=== PATIENT | female | born 1990 | race Caucasian/White ===

== ENCOUNTER 2016-10-27 17:32 | Inpatient (IN) | payer BC ==
[~2016-10-27] VITALS: Ht 160 cm; Wt 70.2 kg
[~2016-10-27 17:32] MED LIST: ACET50TA PO; AMBI5TAB OR; ATIV1TAB10 PO; BUSP1TAB PO; COLA100C2 OR; FIOR1CAP PO; FLOM5CAP PO; IBUP600T OR; IBUP80TA PO; MILKSUS OR; PERC5TAB PO; PERC5TAB6 PO; PRENTAB8 PO; TYLE500T53 OR; [UNRECOGNIZED DRUG - CODE] PO
[2016-10-27] MEDS ORDERED: diphenhydrAMINE INJ 50MG/ML VIAL (J1200) As Ordered ONE (19:19)
[2016-10-27] MEDS ORDERED: METOCLOPRAMIDE INJ 10MG/2ML VIAL (J2765) As Ordered ONE (19:19)
[2016-10-27] MEDS ORDERED: PERC5TAB6 PO (19:46)
[2016-10-27] MEDS ORDERED: NAPR500T2 PO (19:46)
[2016-10-27] MEDS ORDERED: NS 1,000 ML IV SCH (20:09)
[2016-10-27] MEDS ORDERED: ACETAMINOPHEN TAB 650MG DOSE (2X325MG) PO PRN (20:15)
[2016-10-27] MEDS ORDERED: BISACODYL 5 MG TAB PO PRN (20:15)
[2016-10-27 21:34] LABS: BASO # 0.1 K/mm3 (0.0-0.2); BASO % 1.5 % (0.0-1.0); EOS # 0.1 K/mm3 (0.0-0.50); EOS % 1.1 % (0.0-3.0); LARGE UNSTAINED CELL # 0.2 K/mm3 (0.0-0.4); LARGE UNSTAINED CELL % 1.8 % (0.0-4.0); LYMPH # 1.9 K/mm3 (1.5-6.5); LYMPH % 19.9 % (24.0-44.0); MEAN CORPUSCULAR HEMOGLOBIN 28.4 pg (27.0-33.0); MEAN CORPUSCULAR HGB CONC 34.3 g/dl (32.0-36.5); MEAN CORPUSCULAR VOLUME 82.7 fl (80.0-96.0); MONO # 0.7 K/mm3 (0.0-0.8); MONO % 7.7 % (0.0-5.0); NEUTROPHILS # 6.1 K/mm3 (1.8-7.7); PLATELET COUNT, AUTOMATED 279 k/mm3 (150-450); RED CELL DISTRIBUTION WIDTH 12.9 % (11.5-14.5)
[2016-10-27 21:41] LABS: ALBUMIN 3.8 GM/DL (3.2-5.2); ALBUMIN/GLOBULIN RATIO 1.23 (1.00-1.93); ALKALINE PHOSPHATASE 67 U/L (45-117); ALT/SGPT 15 U/L (12-78); ANION GAP 9 MEQ/L (8-16); AST/SGOT 9 U/L (15-37); BILIRUBIN,TOTAL 0.2 MG/DL (0.2-1.0); BLOOD UREA NITROGEN 12 MG/DL (7-18); CALCIUM LEVEL 8.4 MG/DL (8.5-10.1); CARBON DIOXIDE LEVEL 25 MEQ/L (21-32); CHLORIDE LEVEL 109 MEQ/L (98-107); CHOLESTEROL LEVEL 153 MG/DL (<200); GLOMERULAR FILTRATION RATE > 60.0 (>60); GLUCOSE, FASTING 98 MG/DL (70-105); MAGNESIUM LEVEL 1.9 MG/DL (1.8-2.4); POTASSIUM SERUM 3.9 MEQ/L (3.5-5.1); SODIUM LEVEL 143 MEQ/L (136-145); TOTAL PROTEIN 6.9 GM/DL (6.4-8.2); TRIGLYCERIDES LEVEL 212 MG/DL (<150)
[2016-10-27 22:17] LABS: CA 125 12.1 U/ML (<30.2)
[2016-10-27] MEDS: LR 1,000 ML IV SCH (23:00)
[2016-10-28] MEDS ORDERED: ONDANSETRON 4MG/2ML VIAL (J2405) As Ordered ONE (00:15)
--- NOTE | 2016-10-28 00:46 | EDDOCDS ---
Nurse's Notes [facility] Name: Gracia Holloway Age: 26 yrs Sex: Female : 1990 Arrival Date: 10/27/2016 Time: 17:32 Bed I4 / M4 Private MD: Garrett Huber Diagnosis: Acute pancreatitis Presentation: 10/27 17:55 Presenting complaint: Patient states: "I was seen by my primary today for a follow up mb9 from being seen here on Sunday after being diagnosed with pancreatitis. My primary called me and said he talked to the hospitalist to have me admitted because he doesn't think the pain is going to be controlled and he told me to come to the ER.". Acute neurological deficits are not present. Mechanism of Injury: No Mechanism of Injury. Adult Sepsis Screening: The patient does not have new or worsening altered mentation. Patient's respiratory rate is less than 22. Systolic blood pressure is greater than 100. Patient has a qSOFA score of 0- Negative Sepsis Screen. Suicide/Homicide risk assessment- the patient denies having any suicidal and/or homicidal ideations and does not present with any other emotional, behavioral or mental health complaints. 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 Transition of care: patient was not received from another setting of care. 17:55 Acuity: ABDON Level 3 mb9 17:55 Method Of Arrival: Walkin/Carried/Asstd mb9 Triage Assessment: 18:01 General: Appears uncomfortable, Behavior is appropriate for age, cooperative. Pain: mb9 Location: posterior aspect of right lateral abdomen and anterior aspect of right lateral abdomen Pain currently is 6 out of 10 on a pain scale. HIV screening NA for this visit Offered previously. Respiratory: Airway is patent Respiratory effort is even, unlabored. Musculoskeletal: No deficits noted. 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 Percocet 5-325 mg Oral tab 1 tab every 4 hours (Last dose: 10/27/2016 15:00) 2. naproxen 500 mg Oral TbEC 1 tab 2 times per day (Last dose: 10/27/2016) - PMHx: Kidney stones; Pancreatitis; - PSHx: Tonsillectomy; fallopian tube removed; - Social history: Smoking status: Patient states was never smoker of tobacco. No barriers to communication noted, The patient speaks fluent Turkish. - Family history: Not pertinent. - : The pt / caregiver states he / she is not on anticoagulants. Home medication list is obtained from the patient. - Exposure Risk Screening:: None identified. Screenin:32 Screening information is obtained from the patient. Fall risk: No risks identified. mcp Assistance ADL's: requires no assistance with activities of daily living. Abuse/DV Screen: The patient / caregiver reports he/she is: not in a situation that causes fear, pain or injury. Nutritional screening: No deficits noted. Advance Directives: Currently, there is no health care proxy. There is no active DNR order. There is no Power of Frog Catcher. home support is adequate. Assessment: 19:31 General: Appears ill, Behavior is cooperative. Pain: Location: back and abdomen Pain mcp currently is 7 out of 10 on a pain scale. Neurological: No deficits noted. Respiratory: Airway is patent Respiratory effort is even, unlabored. GI: Abdomen is non- distended Reports nausea, vomiting. Derm: Skin is pink, warm & dry. 20:30 General: Appears in no apparent distress, Behavior is cooperative. Neurological: No mcp deficits noted. Respiratory: Airway is patent Respiratory effort is even, unlabored. Derm: Skin is pink, warm & dry. 21:30 General: Appears in no apparent distress, Behavior is cooperative. Neurological: No mcp deficits noted. GI: Reports nausea. Derm: Skin is pink, warm & dry. 22:30 General: Appears in no apparent distress, Behavior is cooperative. Neurological: No mcp deficits noted. Respiratory: Airway is patent Respiratory effort is even, unlabored. Derm: Skin is pink, warm & dry. 23:30 General: Appears in no apparent distress, Behavior is cooperative. Neurological: No mcp deficits noted. Respiratory: Airway is patent Respiratory effort is even, unlabored. GI: Reports nausea. Derm: Skin is pink, warm & dry. 10/28 00:38 General: Appears ill, Behavior is cooperative. Neurological: No deficits noted. mcp Respiratory: Airway is patent Respiratory effort is even, unlabored. GI: Reports nausea. Derm: Skin is pink, warm & dry. Vital Signs: 10/27 17:35 BP 145 / 93 RA Sitting (auto/reg); Pulse 85 RA; Resp 18 S; Temp 97.2(O); Pulse Ox 98% mt4 on R/A; Weight 70.31 kg (R); Height 5 ft. 3 in. (160.02 cm) (R); Pain 7/10; 22:48 BP 126 / 70; Pulse 108; Resp 16; Temp 99.1; Pulse Ox 99% ; Pain 5/10; slm 10/28 00:25 BP 130 / 74; Pulse 102; Resp 18; Temp 98.7; Pulse Ox 97% ; Pain 6/10; ajs 10/27 17:35 Body Mass Index 27.46 (70.31 kg, 160.02 cm) mt4 Vitals: 10/27 17:35 Log In Time: October 27, 2016 at 17:32. mt4 ED Course: 17:34 Patient visited by Ava Stevenson. mt4 17:34 Patient moved to Waiting mt4 17:35 Garrett Huber is Private Physician. mt4 17:36 Patient moved to Pre RCE mt4 17:58 Triage Initiated mb9 18:51 Patient visited by Nasreen Nicholas PCA. jb5 18:51 Patient moved to Triage 1 mb9 19:03 West Carty PA is PHCP. btw 19:03 Nirmal Goldberg DO is Attending Physician. btw 19:03 Patient visited by [place] Carty PA. btw 19:08 Patient moved to I4 / M4 jb5 19:22 Justus Espinoza MD is Hospitalizing Provider. btw 19:32 The patient / caregiver is instructed regarding the plan of care and ED course. Patient mcp has correct armband on for positive identification. Placed in gown. Bed in low position. Call light in reach. Adult w/ patient. 19:32 Inserted saline lock: 20 gauge in right antecubital area The patient tolerated the mcp procedure well. 19:33 Patient visited by Carol Levine RN. [facility] 20:22 [facility] Payment Agreement was scanned into [employer] and attached to record. ks16 22:48 Patient visited by Christina Rosas LPN. slm 23:34 Patient visited by Carol Levine RN. mcp 23:53 Patient visited by Carol Levine RN. mcp 10/28 00:25 Patient visited by Radha Quesada. ajs 00:39 No procedures done that require assistance. mcp Administered Medications: 10/27 19:29 Drug: Metoclopramide 20 mg [metoclopramide 5 mg/mL injection solution] Route: IV; Rate: mcp 80 mg/hr; Infused Over: 15 mins; Site: right antecubital; 19:55 Follow up: IV Status: Completed infusion; IV Intake: 20ml mcp 19:29 Drug: diphenhydrAMINE 50 mg [diphenhydramine 50 mg/mL injection solution (1 mL)] Route: mcp IVP; Site: right antecubital; 19:56 Drug: NS 0.9% 1000 ml [sodium chloride 0.9 % intravenous solution] Route: IV; Rate: mcp bolus; Site: right antecubital; 10/28 00:18 Drug: Ondansetron 4 mg [ondansetron HCl 2 mg/mL intravenous solution (2 mL)] Route: mcp IVP; Site: right antecubital; Intake: 10/27 19:55 IV: 20.00ml; Total: 20.00ml. mcp Order Results: Lab Order: CBC WITH DIFFERENTIAL; SPEC'M 10/27/16 21:02 Test: WHITE BLOOD COUNT; Value: 9.0; Range: 4.0-10.0; Units: K/mm3; Status: F Test: RED BLOOD COUNT; Value: 5.01; Range: 4.00-5.40; Units: M/mm3; Status: F Test: HEMOGLOBIN; Value: 14.2; Range: 12.0-16.0; Units: g/dl; Status: F Test: HEMATOCRIT; Value: 41.4; Range: 36.0-47.0; Units: %; Status: F Test: MEAN CORPUSCULAR VOLUME; Value: 82.7; Range: 80.0-96.0; Units: fl; Status: F Test: MEAN CORPUSCULAR HEMOGLOBIN; Value: 28.4; Range: 27.0-33.0; Units: pg; Status: F Test: MEAN CORPUSCULAR HGB CONC; Value: 34.3; Range: 32.0-36.5; Units: g/dl; Status: F Test: RED CELL DISTRIBUTION WIDTH; Value: 12.9; Range: 11.5-14.5; Units: %; Status: F Test: PLATELET COUNT, AUTOMATED; Value: 279; Range: 150-450; Units: k/mm3; Status: F Test: NEUTROPHILS %; Value: 68.0; Range: 36.0-66.0; Abnormal: Above high normal; Units: %; Status: F Test: LYMPH %; Value: 19.9; Range: 24.0-44.0; Abnormal: Below low normal; Units: %; Status: F Test: MONO %; Value: 7.7; Range: 0.0-5.0; Abnormal: Above high normal; Units: %; Status: F Test: EOS %; Value: 1.1; Range: 0.0-3.0; Units: %; Status: F Test: BASO %; Value: 1.5; Range: 0.0-1.0; Abnormal: Above high normal; Units: %; Status: F Test: LARGE UNSTAINED CELL %; Value: 1.8; Range: 0.0-4.0; Units: %; Status: F Test: NEUTROPHILS #; Value: 6.1; Range: 1.8-7.7; Units: K/mm3; Status: F Test: LYMPH #; Value: 1.9; Range: 1.5-6.5; Units: K/mm3; Status: F Test: MONO #; Value: 0.7; Range: 0.0-0.8; Units: K/mm3; Status: F Test: EOS #; Value: 0.1; Range: 0.0-0.50; Units: K/mm3; Status: F Test: BASO #; Value: 0.1; Range: 0.0-0.2; Units: K/mm3; Status: F Test: LARGE UNSTAINED CELL #; Value: 0.2; Range: 0.0-0.4; Units: K/mm3; Status: F Lab Order: COMPLETE COMPHRENSIVE METABOLI; SPEC'M 10/27/16 21:02 Test: GLUCOSE, FASTING; Value: 98; Range: 70-105; Units: MG/DL; Status: F Test: BLOOD UREA NITROGEN; Value: 12; Range: 7-18; Units: MG/DL; Status: F Test: CREATININE FOR GFR; Value: 0.60; Range: 0.55-1.02; Units: MG/DL; Status: F Test: GLOMERULAR FILTRATION RATE; Value: > 60.0; Range: >60; Status: F Test: SODIUM LEVEL; Value: 143; Range: 136-145; Units: MEQ/L; Status: F Test: POTASSIUM SERUM; Value: 3.9; Range: 3.5-5.1; Units: MEQ/L; Status: F Test: CHLORIDE LEVEL; Value: 109; Range: 98-107; Abnormal: Above high normal; Units: MEQ/L; Status: F Test: CARBON DIOXIDE LEVEL; Value: 25; Range: 21-32; Units: MEQ/L; Status: F Test: ANION GAP; Value: 9; Range: 8-16; Units: MEQ/L; Status: F Test: CALCIUM LEVEL; Value: 8.4; Range: 8.5-10.1; Abnormal: Below low normal; Units: MG/DL; Status: F Test: AST/SGOT; Value: 9; Range: 15-37; Abnormal: Below low normal; Units: U/L; Status: F Test: ALT/SGPT; Value: 15; Range: 12-78; Units: U/L; Status: F Test: ALKALINE PHOSPHATASE; Value: 67; Range: 45-117; Units: U/L; Status: F Test: BILIRUBIN,TOTAL; Value: 0.2; Range: 0.2-1.0; Units: MG/DL; Status: F Test: TOTAL PROTEIN; Value: 6.9; Range: 6.4-8.2; Units: GM/DL; Status: F Test: ALBUMIN; Value: 3.8; Range: 3.2-5.2; Units: GM/DL; Status: F Test: ALBUMIN/GLOBULIN RATIO; Value: 1.23; Range: 1.00-1.93; Status: F Test Note: ; Units are mL/min/1.73 m2 Chronic Kidney Disease Staging per NKF: Stage I & II GFR >=60 Normal to Mildly Decreased Stage III GFR 30-59 Moderately Decreased Stage IV GFR 15-29 Severely Decreased Stage V GFR <15 Very Little GFR Left ESRD GFR <15 on LADIES ATTENDANT Lab Order: MAGNESIUM LEVEL; SPEC'M 10/27/16 21:02 Test: MAGNESIUM LEVEL; Value: 1.9; Range: 1.8-2.4; Units: MG/DL; Status: F Lab Order: ETHYL ALCOHOL (ETHANOL); [facility] 10/27/16 21:02 Test: ETHYL ALCOHOL (ETHANOL); Value: < 0.003; Range: 0.000-0.010; Units: %; Status: F Lab Order: CARDIAC RISK PROFILE; [facility] 10/27/16 21:02 Test: TRIGLYCERIDES LEVEL; Value: 212; Range: <150; Abnormal: Above high normal; Units: MG/DL; Status: F Test: CHOLESTEROL LEVEL; Value: 153; Range: <200; Units: MG/DL; Status: F Test: HDL CHOLESTEROL; Value: 46; Range: >40; Units: MG/DL; Status: F Test: LDL CHOLESTEROL; Value: 64.6; Range: <100; Units: MG/DL; Status: F Test: NON-HDL-C; Value: 107; Units: MG/DL; Status: F Test: CHOLESTEROL RISK RATIO; Value: 3.326; Range: <5; Status: F Lab Order: CA 125; [facility] 10/27/16 21:02 Test: CA 125; Value: 12.1; Range: <30.2; Units: U/ML; Status: F Test Note: ; THE CA 125 ASSAY IS PERFORMED ON THE [employer] BY CHEMILUMINESCENCE AND SHOULD NOT BE COMPARED INTERCHANGEABLY WITH OTHER METHODS. IT SHOULD NOT BE USED ALONE A SCREENING TEST OR DIAGNOSIS FOR THE PRESENCE OR ABSENCE OF MALIGNANT DISEASE. PREDICTIONS OF DISEASE RECURRENCE SHOULD NOT BE BASED SOLELY ON VALUES OBTAINED FROM SERIAL PATIENT SERUM VALUES. Lab Order: CA19-9 ANTIGEN,CARBOHYDRATE AG; [facility] 10/27/16 21:02 Test: CA19-9 TUMOR MARKER,CARBOHYDRA; Value: 12.2; Range: <35.0; Units: U/ML; Status: F Test Note: ; THE CA 19-9 ASSAY IS PERFORMED ON THE [employer] BY CHEMILUMINESCENCE AND SHOULD NOT BE COMPARED INTERCHANGEABLY WITH OTHER METHODS. IT SHOULD NOT BE USED ALONE A SCREENING TEST OR DIAGNOSIS FOR THE PRESENCE OR ABSENCE OF MALIGNANT DISEASE. PREDICTIONS OF DISEASE RECURRENCE SHOULD NOT BE BASED SOLELY ON VALUES OBTAINED FROM SERIAL PATIENT SERUM VALUES. Outcome: 19:23 Decision to Hospitalize by Provider. bt 10/28 00:39 Discharge Assessment: patient administered narcotics - no. The following High Risk mcp Discharge criteria are identified: None. Admitted to Pediatrics accompanied by tech, family with patient, via wheelchair, with chart. Condition: stable. Ultrasound Study completed. Property :Personal belongings accompany Pt. 00:45 Patient left the ED. mcp Signatures: Carol Levine, RN RN Nasreen Ahmadi, SELINA STAFF OCCUPATIONAL THERAPIST jb5 Ava Stevenson mt4 [place] Carty PA PA btw Slate, Amanda ajs McIntyre, Stephanie, LPN LPN Dipesh Boland RN RN mbGela Kwok, Reg Reg [email or web address] MTDD
--- NOTE | 2016-10-28 00:46 | EDDOCDS ---
Physician Documentation [facility] Name: Gracia Holloway Age: 26 yrs Sex: Female : 1990 Arrival Date: 10/27/2016 Time: 17:32 Bed I4 / M4 Private MD: Garrett Huber Disposition: 10/27/16 19:23 Hospitalization ordered by Justus Espinoza for Inpatient Admission. Preliminary diagnosis is Acute pancreatitis. - Bed requested for M PED. - Status is Inpatient Admission. mcp - Condition is Stable. - Problem is new. - Symptoms are unchanged. Historical: - Allergies: no known allergies; - Home Meds: 1. Percocet 5-325 mg Oral tab 1 tab every 4 hours (Last dose: 10/27/2016 15:00) 2. naproxen 500 mg Oral TbEC 1 tab 2 times per day (Last dose: 10/27/2016) - PMHx: Kidney stones; Pancreatitis; - PSHx: Tonsillectomy; fallopian tube removed; - Social history: Smoking status: Patient states was never smoker of tobacco. No barriers to communication noted, The patient speaks fluent Japanese. - Family history: Not pertinent. - : The pt / caregiver states he / she is not on anticoagulants. Home medication list is obtained from the patient. - Exposure Risk Screening:: None identified. 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 3 in. (160.02 cm) (R); Pain 7/10; 22:48 BP 126 / 70; Pulse 108; Resp 16; Temp 99.1; Pulse Ox 99% ; Pain 5/10; slm 10/28 00:25 BP 130 / 74; Pulse 102; Resp 18; Temp 98.7; Pulse Ox 97% ; Pain 6/10; ajs 10/27 17:35 Body Mass Index 27.46 (70.31 kg, 160.02 cm) mt4 MDM: 10/27 19:09 IV Saline Lock ordered. btw 19:09 NS 0.9% 1000 ml IV at bolus once ordered. btw 19:09 Metoclopramide 20 mg IV at 80 mg/hr once over 15 mins ordered. btw 19:09 diphenhydrAMINE 50 mg IVP once ordered. btw 19:23 BED REQUEST+ADM ordered. EDMS 20:03 Financial registration complete. ks16 20:22 [facility] Payment Agreement was scanned into [employer] and attached to record. ks16 20:23 CBC WITH DIFFERENTIAL Ordered. EDMS 20:23 COMPLETE COMPHRENSIVE METABOLI Ordered. EDMS 20:23 MAGNESIUM LEVEL Ordered. EDMS 20:24 NPO DIET ordered. EDMS 20:37 ETHYL ALCOHOL (ETHANOL) Ordered. EDMS 20:38 CARDIAC RISK PROFILE Ordered. EDMS 20:56 CA 125 Ordered. EDMS 20:56 CA19-9 ANTIGEN,CARBOHYDRATE AG Ordered. EDMS 21:02 Urine Toxicology Ordered. EDMS 22:01 LIPASE Ordered. EDMS 22:02 CBC WITH DIFFERENTIAL Reviewed. ss12 22:02 COMPLETE COMPHRENSIVE METABOLI Reviewed. ss12 22:02 CARDIAC RISK PROFILE Reviewed. ss12 22:02 MAGNESIUM LEVEL Reviewed. ss12 22:02 ETHYL ALCOHOL (ETHANOL) Reviewed. ss12 22:58 Admission / Observation Status ordered. EDMS 10/28 00:19 Ondansetron 4 mg IVP once ordered. mcp Administered Medications: 10/27 19:29 Drug: Metoclopramide 20 mg [metoclopramide 5 mg/mL injection solution] Route: IV; Rate: mcp 80 mg/hr; Infused Over: 15 mins; Site: right antecubital; 19:55 Follow up: IV Status: Completed infusion; IV Intake: 20ml [facility] 19:29 Drug: diphenhydrAMINE 50 mg [diphenhydramine 50 mg/mL injection solution (1 mL)] Route: mcp IVP; Site: right antecubital; 19:56 Drug: NS 0.9% 1000 ml [sodium chloride 0.9 % intravenous solution] Route: IV; Rate: mcp bolus; Site: right antecubital; 10/28 00:18 Drug: Ondansetron 4 mg [ondansetron HCl 2 mg/mL intravenous solution (2 mL)] Route: mcp IVP; Site: right antecubital; Signatures: Dispatcher [employer] EDMS Carol Levine RN RN mcp Quesenberry [facility], Deborah, RN RN daq Wolfenden, West, PA PA btw Cory Stover ss12 Dipesh LambRN RN mb9 Gela Buitrago, Reg Reg ks16 The chart was reviewed and I authenticate all verbal orders and agree with the evaluation and treatment provided.Corrections: (The following items were deleted from the chart) 10/27 20:37 20:29 CARDIAC RISK PROFILE ordered. EDMS EDMS 20:37 20:33 ETHYL ALCOHOL (ETHANOL)+LAB ordered. EDMS EDMS 20:57 20:48 CA19-9 ANTIGEN,CARBOHYDRATE AG ordered. EDMS EDMS 20:57 20:48 CA 125 ordered. EDMS EDMS 22:58 22:58 CARDIAC RISK PROFILE ordered. EDMS EDMS 22:58 22:58 CARDIAC RISK PROFILE ordered. EDMS EDMS 23:11 22:49 Abdomen, limited US ordered. EDMS EDMS Attachments: 20:22 [facility] [place] Agreement [email or web address] MTDD
[2016-10-28 00:50] VITALS: BP 132/81
[2016-10-28] MEDS: PERCOCET 5MG/325MG TAB PO PRN ×3 (01:35→13:09)
[2016-10-28] MEDS: MORPHINE 2 MG/ML 1ML SYRINGE IV PRN ×3 (02:30→10:19)
[2016-10-28 04:00] VITALS: BP 117/69
--- NOTE | 2016-10-28 04:00 | HPE ---
DATE OF ADMISSION: 10/27/2016 PRIMARY CARE PHYSICIAN: Dr. Garrett Huber CHIEF COMPLAINT: Acute pancreatitis. HISTORY OF PRESENT ILLNESS: Ms. Holloway is a 26-year-old female with multiple past medical history who presented due to experiencing severe abdominal pain which is mostly located on the right side. Patient expressed that the pain started on [place] when she woke up because of the pain. Patient states that the pain was 7/10, sharp and mostly located in the back between the scapula with the anterior radiation. Patient expressed that she has been nauseated since the pain started, and had two episodes of vomiting. On Sunday she had one episode of fever (101); however, patient denied chills or night sweats. Patient came to the emergency room (ER) on October 24. At the ER, the patient had a CT of the abdomen and pelvis with contrast which shows bilobe complex cystic structure within the head of the pancreas measuring 2.3 cm x 1.9 cm. Her lab work was negative except mild elevation of the lipase (394). Patient was discharged home and asked to follow with her primary as well as Naproxen 500 mg one tablet twice a day as well as Percocet since she had some left form the time that she had nephrolithiasis. Patient was seen by her primary care yesterday who ordered repeat of the lipase which indicated that the lipase had increased to 1586. Patient expressed that since her symptoms had started, patient has lost her appetite. Also, patient cannot tolerate food therefore, the patient has decreased food intake. Patient denies sick contact. Patient denies history of illicit drug use or alcoholism and denies previous history of pancreatitis. Patient is not on any scheduled medications before. PAST MEDICAL HISTORY: 1. Ectopic . 2. Pseudoseizure. 3. Migraine headache. 4. Nephrolithiasis. PAST SURGICAL HISTORY: Salpingectomy secondary to ectopic . ALLERGIES: No known drug allergies. HOME MEDICATIONS: - Percocet 5/325 one tablet every four hours - Naproxen 500 mg oral tab, one tablet twice a day SOCIAL HISTORY: Patient denies using tobacco products. Patient denies illicit drug use. Patient expressed that she drinks alcohol occasionally. 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 FAMILY HISTORY: Patient's parents both have hypertension and diabetes. Patient's sister is healthy. Patient is and her two children are healthy. REVIEW OF SYSTEMS: GENERAL: Patient expressed that she has been experiencing episodes of fever; however, patient denies chills or night sweats. Patient also denies weight loss or weight gain. HEENT: Patient denies acute vision or hearing changes. Patient also denies problems with chewing food or sinus infection. She also denies hallucinations. NECK: Patient denies decreased range of motion of her neck. HEART: Patient denies chest pain, racing or skipping heartbeat, or palpitations. LUNGS: Patient denies wheezing or shortness of breath. ABDOMEN: Patient expressed severe pain mostly on the right side with radiation to the back bilaterally. Patient denies diarrhea or constipation. No hematochezia or hemoptysis, nausea or vomiting. No hemoptysis. Patient has been nauseated. Patient had two episodes of vomiting. PHYSICAL EXAMINATION: VITAL SIGNS: Blood pressure 145/93, pulse 85, respiratory rate 18, temperature 97.2, pulse oximetry 98, weight is 70.31, height 160.02. HEENT: Normocephalic, atraumatic. Pupils are equal. Oral mucosa is moist. NECK: Soft, supple, without lymphadenopathy or thyromegaly. HEART: Regular rate and rhythm, normal S1, S2. LUNGS: Clear breath sounds bilaterally. Good air movement. ABDOMEN: Soft, tender to palpation, mostly on the mid abdominal quadrants. Positive bowel sounds in all quadrants. EXTREMITIES: No lower extremity edema, +2 pulses in both lower extremities. NEURO: Cranial nerves II-XII was intact. No focal deficiencies. LABORATORY DATA: CBC is pending at this time. Comprehensive metabolic panel is pending at this time. Lipase 1586, amylase 112. IMAGING: CT scan which was done on 10/24/2016, with contrast shows bilobe complex cystic structure within the head of the pancreas measuring 2.3 x 1.9 cm with minimal enhancement. No biliary dilatation. Unremarkable gallbladder. Unremarkable appendix. ASSESSMENT AND PLAN: 1. Bilobed complex cyst on the head of the pancreas. According to the CT, the patient has bilobed complex cystic structure measuring 2.3 cm x 1.9 cm. Patient on Sunday had mild elevation of the lipase; however, patient did not have previous pancreatitis, and the cyst is a new finding for her. At this time, I have made the patient nothing by mouth and started the patient on IV fluids. We will continue pain management with Percocet, morphine, and acetaminophen. The patient might require repeat CT or possible PET scan to evaluate the complex cystic structure within the head of the pancreas, as well as endoscopic ultrasound. Patient might require gastroenterology evaluation if patient's symptoms gets worse. However, at this time, the patient is stable. We will continue monitoring lipase level. 2. History of hypermagnesemia. We will continue to monitor the patient's magnesium level. At this time, the patient's magnesium level is stable. 3. History of ureterovesical stone with mild right hydronephrosis. This is a chronic issue. At this time, the patient is stable. 4. Pseudoseizure. No acute symptoms. The patient is stable. 5. Ectopic . Status post salpingectomy. Stable. 6. History of migraine headaches. No acute symptoms 7. Deep vein thrombosis (DVT) prophylaxis. Patient is on Lovenox. My preceptor for this patient encounter was Dr. Flor Espinoza. The preceptor was physically present in the building during the encounter and was fully available as needed. All aspects of the patient interview, examination, medical decision making process, and medical care plan development were reviewed and approved by the preceptor. The preceptor is aware and concurs with the plan as stated in the body of this note and will attest to such by his/her co-signature. I, Flor Espinoza, have both independently examined this patient as well as reviewed the documentation. I have discussed in detail with the resident the findings and plan of treatment as documented in the residents documentation. I will continue to follow the patient and offer further guidance to the patients care as necessary during this hospital stay. [place]
[2016-10-28 08:00] VITALS: BP 116/74
[2016-10-28] MEDS: ENOXAPARIN 40 MG/0.4 ML SYRINGE (J1650) SC SCH (08:36)
[2016-10-28] MEDS: ONDANSETRON 4MG/2ML VIAL (J2405) IV PRN ×2 (08:44→18:16)
[2016-10-28] MEDS: LR 1,000 ML IV SCH ×2 (10:45→20:53)
--- NOTE | 2016-10-28 11:20 | IPNPDOC ---
Text Note Date of Service The patient was seen on 10/28/16 at 11:10. NOTE Subjective: Patient states she still has epigastric pain. Complains of nausea. No diarrhea. Objective: Vitals: (see below) General: No acute distress, laying comfortably in bed. HEENT: Moist mucous membranes. Neck: No JVD or lymphadenopathy Cardiac: RRR, No murmurs Pulm: Clear to auscultation b/l. No wheezing, rhonchi Abd: Epigastric tenderness. No rebound, guarding or rigidity. ND + BS Ext: No edema or cyanosis Labs (see below) Images: CT Abd/pelvis 10/27/16 Impression: Bilobed complex cystic structure within the head of the pancreas measuring 2.3 x 1.9 cm with minimal peripheral enhancement. No biliary dilatation. Unremarkable gallbladder, unremarkable appendix. Recommend short interval follow-up CT and/or gastroenterology evaluation with consideration of endoscopic ultrasound or PET scan to evaluate complex cystic structure within the head of pancreas. Moderate generalized retained colonic stool Assessment/Plan 1. Pancreatitis with a complex appearing cystic structure. Triglyceride level 212, lipase 652. No significant alcohol intake. RUQ u/s pending. Unfortunately we do not have gastroenterology at this time. I spoke with the patient on the plan for conservative management with NPO, IV fluids, pain control, and outpt gastroenterology follow-up. If we are unable to control the patient's pain and symptoms, we may need to transfer the patient for a formal gastroenterology evaluation as she does have a family history of pancreatic cancer in the grandmother. Will need repeat CT abd/pelvis, and possible endoscopic u/s. 2. History of ectopic 3. History of pseudoseizures 4. History of migraines 5. History of nephrolithiasis DVT prophy: Enoxaparin VS,Fishbone, I+O VS, Fishbone, I+O Laboratory Tests 10/27/16 21:02 Calcium Level 8.4 L, Aspartate Amino Transf (AST/SGOT) 9 L, Alanine Aminotransferase (ALT/SGPT) 15, Alkaline Phosphatase 67, Total Bilirubin 0.2, Triglycerides Level 212 H, Cholesterol Level 153, HDL Cholesterol 46, LDL Cholesterol 64.6, Total Protein 6.9, Albumin 3.8, Red Blood Count 5.01, Mean Corpuscular Volume 82.7, Mean Corpuscular Hemoglobin 28.4, Mean Corpuscular Hemoglobin Concent 34.3, Red Cell Distribution Width 12.9, Neutrophils (%) (Auto ) 68.0 H, Lymphocytes (%) (Auto) 19.9 L, Monocytes (%) (Auto) 7.7 H, Eosinophils (%) (Auto) 1.1, Basophils (%) (Auto) 1.5 H, Neutrophils # (Auto) 6.1 , Lymphocytes # (Auto) 1.9, Monocytes # (Auto) 0.7, Eosinophils # (Auto) 0.1, Basophils # (Auto) 0.1 Vital Signs Date Time Temp Pulse Resp B/P Pulse Ox O2 Delivery O2 Flow Rate FiO2 10/28/16 10:31 16 10/28/16 08:00 99.6 109 116/74 97 Room Air I&O- Last 24 Hours up to 6 AM 10/28/16 06:00 Intake Total 0 ml Output Total 200 ml Balance -200 ml ANDREW SILVA MD Oct 28, 2016 11:20
--- NOTE | 2016-10-28 12:14 | REP ---
Clinical: Right upper quadrant pain and tenderness. Comparison: CT dated 10/24/2016. Findings: A multilobulated cystic lesion at the head of the pancreas measures 2.6 cm maximal diameter. Liver is normal in contour, size, echogenicity without focal hepatic lesion identified. The gallbladder is unremarkable and without gallstones, wall thickening, or pericholecystic fluid. No biliary ductal dilatation is appreciated and the common bile duct measures 3 mm diameter. Right kidney is normal in reniform shape without hydronephrosis and measures 12.5 x 5.2 x 4.5 cm. No ascites. Impression: 1. Lobulated cystic lesion at the head of the pancreas measuring up to 2.6 cm maximal diameter. This represents a relatively new finding when compared to CT dated 2007. Differential diagnosis includes both benign and malignant cystic neoplasms. Consider pre and post contrast MRI evaluation as well as biopsy/aspiration. 2. Normal gallbladder and biliary system. Signed by Jaime Melendez MD 10/28/2016 12:04 P
[2016-10-28] MEDS: MORPHINE 4 MG/ML 1ML SYRINGE IV PRN ×4 (15:14→23:55)
[2016-10-28 16:00] VITALS: BP 133/93
[2016-10-28 16:20] LABS: VENOUS BASE EXCESS -1.6 (-2.0-2.0); VENOUS O2 SATURATION 67.1 % (60.0-80.0); VENOUS PARTIAL PRESSURE CO2 45.3 mmHg (38.0-50.0); VENOUS PARTIAL PRESSURE O2 34.2 mmHg (30.0-50.0); VENOUS STANDARD HCO3 22.5 MEQ/L; VENOUS TOTAL CO2 25.7 MEQ/L (24.0-28.0)
[2016-10-28 16:25] LABS: BASO # 0.1 K/mm3 (0.0-0.2); BASO % 1.2 % (0.0-1.0); EOS # 0.1 K/mm3 (0.0-0.50); EOS % 1.5 % (0.0-3.0); LARGE UNSTAINED CELL # 0.2 K/mm3 (0.0-0.4); LARGE UNSTAINED CELL % 2.5 % (0.0-4.0); LYMPH # 2.5 K/mm3 (1.5-6.5); MEAN CORPUSCULAR HEMOGLOBIN 28.3 pg (27.0-33.0); MEAN CORPUSCULAR HGB CONC 33.8 g/dl (32.0-36.5); MEAN CORPUSCULAR VOLUME 83.5 fl (80.0-96.0); MONO # 0.5 K/mm3 (0.0-0.8); MONO % 8.1 % (0.0-5.0); NEUTROPHILS # 3.1 K/mm3 (1.8-7.7); NEUTROPHILS % 49.7 % (36.0-66.0); PLATELET COUNT, AUTOMATED 255 k/mm3 (150-450); RED CELL DISTRIBUTION WIDTH 12.9 % (11.5-14.5); WHITE BLOOD COUNT 6.2 K/mm3 (4.0-10.0)
[2016-10-28 16:54] LABS: ALBUMIN 3.5 GM/DL (3.2-5.2); ALBUMIN/GLOBULIN RATIO 1.25 (1.00-1.93); ALKALINE PHOSPHATASE 59 U/L (45-117); ALT/SGPT 18 U/L (12-78); AMYLASE 60 U/L (25-115); ANION GAP 8 MEQ/L (8-16); AST/SGOT 11 U/L (15-37); BILIRUBIN,TOTAL 0.4 MG/DL (0.2-1.0); BLOOD UREA NITROGEN 10 MG/DL (7-18); CALCIUM LEVEL 8.1 MG/DL (8.5-10.1); CARBON DIOXIDE LEVEL 26 MEQ/L (21-32); CHLORIDE LEVEL 108 MEQ/L (98-107); GLOMERULAR FILTRATION RATE > 60.0 (>60); GLUCOSE, FASTING 78 MG/DL (70-105); POTASSIUM SERUM 4.1 MEQ/L (3.5-5.1); SODIUM LEVEL 142 MEQ/L (136-145); TOTAL PROTEIN 6.3 GM/DL (6.4-8.2)
[2016-10-28 20:00] VITALS: BP 149/89
[2016-10-29] MEDS: LR 1,000 ML IV SCH ×2 (04:25→16:03)
[2016-10-29] MEDS: MORPHINE 4 MG/ML 1ML SYRINGE IV PRN ×2 (04:27→09:44)
[2016-10-29 07:07] LABS: BASO % 0.7 % (0.0-1.0); EOS # 0.1 K/mm3 (0.0-0.50); EOS % 1.6 % (0.0-3.0); LARGE UNSTAINED CELL # 0.1 K/mm3 (0.0-0.4); LARGE UNSTAINED CELL % 1.9 % (0.0-4.0); LYMPH # 2.1 K/mm3 (1.5-6.5); LYMPH % 30.2 % (24.0-44.0); MEAN CORPUSCULAR HEMOGLOBIN 28.9 pg (27.0-33.0); MEAN CORPUSCULAR HGB CONC 34.3 g/dl (32.0-36.5); MEAN CORPUSCULAR VOLUME 84.3 fl (80.0-96.0); MONO # 0.4 K/mm3 (0.0-0.8); NEUTROPHILS # 4.1 K/mm3 (1.8-7.7); NEUTROPHILS % 59.6 % (36.0-66.0); PLATELET COUNT, AUTOMATED 246 k/mm3 (150-450); RED CELL DISTRIBUTION WIDTH 11.9 % (11.5-14.5); WHITE BLOOD COUNT 6.9 K/mm3 (4.0-10.0)
[2016-10-29 07:35] LABS: ALBUMIN 3.5 GM/DL (3.2-5.2); ALBUMIN/GLOBULIN RATIO 1.21 (1.00-1.93); ALKALINE PHOSPHATASE 62 U/L (45-117); ALT/SGPT 15 U/L (12-78); ANION GAP 9 MEQ/L (8-16); AST/SGOT 11 U/L (15-37); BILIRUBIN,TOTAL 0.7 MG/DL (0.2-1.0); BLOOD UREA NITROGEN 11 MG/DL (7-18); CALCIUM LEVEL 8.4 MG/DL (8.5-10.1); CARBON DIOXIDE LEVEL 26 MEQ/L (21-32); CHLORIDE LEVEL 105 MEQ/L (98-107); CREATININE FOR GFR 0.53 MG/DL (0.55-1.02); GLOMERULAR FILTRATION RATE > 60.0 (>60); GLUCOSE, FASTING 69 MG/DL (70-105); MAGNESIUM LEVEL 1.6 MG/DL (1.8-2.4); POTASSIUM SERUM 4.3 MEQ/L (3.5-5.1); SODIUM LEVEL 140 MEQ/L (136-145); TOTAL PROTEIN 6.4 GM/DL (6.4-8.2)
[2016-10-29 08:00] VITALS: BP 134/87
[2016-10-29] MEDS: ENOXAPARIN 40 MG/0.4 ML SYRINGE (J1650) SC SCH (08:00)
[2016-10-29] MEDS ORDERED: MAG SULF 1GM/100ML (MAG RUN) 1 GM in APPROPRIATE DILUENT 1 EA IV ONE (09:00)
[2016-10-29 12:00] VITALS: BP 138/84
--- NOTE | 2016-10-29 14:37 | IPNPDOC ---
Text Note Date of Service The patient was seen on 10/29/16 at 14:36. NOTE Subjective: Patient states abdominal pain and nausea have improved. No diarrhea. Objective: Vitals: (see below) General: No acute distress, laying comfortably in bed. HEENT: Moist mucous membranes. Neck: No JVD or lymphadenopathy Cardiac: RRR, No murmurs Pulm: Clear to auscultation b/l. No wheezing, rhonchi Abd: Epigastric tenderness. No rebound, guarding or rigidity. ND + BS Ext: No edema or cyanosis Labs (see below) Images: CT Abd/pelvis 10/27/16 Impression: Bilobed complex cystic structure within the head of the pancreas measuring 2.3 x 1.9 cm with minimal peripheral enhancement. No biliary dilatation. Unremarkable gallbladder, unremarkable appendix. Recommend short interval follow-up CT and/or gastroenterology evaluation with consideration of endoscopic ultrasound or PET scan to evaluate complex cystic structure within the head of pancreas. Moderate generalized retained colonic stool Assessment/Plan 1. Pancreatitis with a complex appearing cystic structure. Triglyceride level 212, lipase 652--> trending down.. No significant alcohol intake. RUQ u/s negative for gallstones. Unfortunately we do not have gastroenterology at this time. I spoke with the patient on the plan for conservative management with NPO , IV fluids, pain control, and outpt gastroenterology follow-up. Family history of pancreatic cancer in the grandmother. MRI Abd pending. Will need outpt repeat CT abd/pelvis, and possible endoscopic u/s. 2. History of ectopic 3. History of pseudoseizures 4. History of migraines 5. History of nephrolithiasis DVT prophy: Enoxaparin VS,Fishbone, I+O VS, Fishbone, I+O Laboratory Tests 10/28/16 16:12 Calcium Level 8.1 L, Aspartate Amino Transf (AST/SGOT) 11 L, Alanine Aminotransferase (ALT/SGPT) 18, Alkaline Phosphatase 59, Total Bilirubin 0.4 #, Total Protein 6.3 L, Albumin 3.5, Red Blood Count 4.46, Mean Corpuscular Volume 83.5, Mean Corpuscular Hemoglobin 28.3, Mean Corpuscular Hemoglobin Concent 33.8 , Red Cell Distribution Width 12.9, Neutrophils (%) (Auto) 49.7, Lymphocytes (% ) (Auto) 37.0, Monocytes (%) (Auto) 8.1 H, Eosinophils (%) (Auto) 1.5, Basophils (%) (Auto) 1.2 H, Neutrophils # (Auto) 3.1, Lymphocytes # (Auto) 2.5, Monocytes # (Auto) 0.5, Eosinophils # (Auto) 0.1, Basophils # (Auto) 0.1 10/29/16 06:37 Calcium Level 8.4 L, Aspartate Amino Transf (AST/SGOT) 11 L, Alanine Aminotransferase (ALT/SGPT) 15, Alkaline Phosphatase 62, Total Bilirubin 0.7 #, Total Protein 6.4, Albumin 3.5, Red Blood Count 4.36, Mean Corpuscular Volume 84.3, Mean Corpuscular Hemoglobin 28.9, Mean Corpuscular Hemoglobin Concent 34.3 , Red Cell Distribution Width 11.9, Neutrophils (%) (Auto) 59.6, Lymphocytes (% ) (Auto) 30.2, Monocytes (%) (Auto) 6.0 H, Eosinophils (%) (Auto) 1.6, Basophils (%) (Auto) 0.7, Neutrophils # (Auto) 4.1, Lymphocytes # (Auto) 2.1, Monocytes # (Auto) 0.4, Eosinophils # (Auto) 0.1, Basophils # (Auto) 0.0 Vital Signs Date Time Temp Pulse Resp B/P Pulse Ox O2 Delivery O2 Flow Rate FiO2 10/29/16 12:00 97.0 97 18 138/84 95 Room Air I&O- Last 24 Hours up to 6 AM 10/29/16 06:00 Intake Total 2981 ml Output Total 1550 ml Balance 1431 ml ANDREW SILVA MD Oct 29, 2016 14:37
[2016-10-29 16:00] VITALS: BP 121/79
[2016-10-29 20:00] VITALS: BP 134/84
[2016-10-30] MEDS: LR 1,000 ML IV SCH ×3 (00:15→19:48)
--- NOTE | 2016-10-30 01:46 | EDDOCDS ---
Nurse's Notes [facility] Name: Gracia Holloway Age: 26 yrs Sex: Female : 1990 Arrival Date: 10/27/2016 Time: 17:32 Bed I4 / M4 Private MD: Garrett Huber Diagnosis: Acute pancreatitis Presentation: 10/27 17:55 Presenting complaint: Patient states: "I was seen by my primary today for a follow up mb9 from being seen here on Sunday after being diagnosed with pancreatitis. My primary called me and said he talked to the hospitalist to have me admitted because he doesn't think the pain is going to be controlled and he told me to come to the ER.". Acute neurological deficits are not present. Mechanism of Injury: No Mechanism of Injury. Adult Sepsis Screening: The patient does not have new or worsening altered mentation. Patient's respiratory rate is less than 22. Systolic blood pressure is greater than 100. Patient has a qSOFA score of 0- Negative Sepsis Screen. Suicide/Homicide risk assessment- the patient denies having any suicidal and/or homicidal ideations and does not present with any other emotional, behavioral or mental health complaints. Status: Patient is not a tire servicer or dependent. Transition of care: patient was not received from another setting of care. 17:55 Acuity: ABDON Level 3 mb9 17:55 Method Of Arrival: Walkin/Carried/Asstd mb9 Triage Assessment: 18:01 General: Appears uncomfortable, Behavior is appropriate for age, cooperative. Pain: mb9 Location: posterior aspect of right lateral abdomen and anterior aspect of right lateral abdomen Pain currently is 6 out of 10 on a pain scale. HIV screening NA for this visit Offered previously. Respiratory: Airway is patent Respiratory effort is even, unlabored. Musculoskeletal: No deficits noted. 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 Percocet 5-325 mg Oral tab 1 tab every 4 hours (Last dose: 10/27/2016 15:00) 2. naproxen 500 mg Oral TbEC 1 tab 2 times per day (Last dose: 10/27/2016) - PMHx: Kidney stones; Pancreatitis; - PSHx: Tonsillectomy; fallopian tube removed; - Social history: Smoking status: Patient states was never smoker of tobacco. No barriers to communication noted, The patient speaks fluent Pashto. - Family history: Not pertinent. - : The pt / caregiver states he / she is not on anticoagulants. Home medication list is obtained from the patient. - Exposure Risk Screening:: None identified. Screenin:32 Screening information is obtained from the patient. Fall risk: No risks identified. mcp Assistance ADL's: requires no assistance with activities of daily living. Abuse/DV Screen: The patient / caregiver reports he/she is: not in a situation that causes fear, pain or injury. Nutritional screening: No deficits noted. Advance Directives: Currently, there is no health care proxy. There is no active DNR order. There is no Power of Pressure Tank Operator. home support is adequate. Assessment: 19:31 General: Appears ill, Behavior is cooperative. Pain: Location: back and abdomen Pain mcp currently is 7 out of 10 on a pain scale. Neurological: No deficits noted. Respiratory: Airway is patent Respiratory effort is even, unlabored. GI: Abdomen is non- distended Reports nausea, vomiting. Derm: Skin is pink, warm & dry. 20:30 General: Appears in no apparent distress, Behavior is cooperative. Neurological: No mcp deficits noted. Respiratory: Airway is patent Respiratory effort is even, unlabored. Derm: Skin is pink, warm & dry. 21:30 General: Appears in no apparent distress, Behavior is cooperative. Neurological: No mcp deficits noted. GI: Reports nausea. Derm: Skin is pink, warm & dry. 22:30 General: Appears in no apparent distress, Behavior is cooperative. Neurological: No mcp deficits noted. Respiratory: Airway is patent Respiratory effort is even, unlabored. Derm: Skin is pink, warm & dry. 23:30 General: Appears in no apparent distress, Behavior is cooperative. Neurological: No mcp deficits noted. Respiratory: Airway is patent Respiratory effort is even, unlabored. GI: Reports nausea. Derm: Skin is pink, warm & dry. 10/28 00:38 General: Appears ill, Behavior is cooperative. Neurological: No deficits noted. mcp Respiratory: Airway is patent Respiratory effort is even, unlabored. GI: Reports nausea. Derm: Skin is pink, warm & dry. Vital Signs: 10/27 17:35 BP 145 / 93 RA Sitting (auto/reg); Pulse 85 RA; Resp 18 S; Temp 97.2(O); Pulse Ox 98% mt4 on R/A; Weight 70.31 kg (R); Height 5 ft. 3 in. (160.02 cm) (R); Pain 7/10; 22:48 BP 126 / 70; Pulse 108; Resp 16; Temp 99.1; Pulse Ox 99% ; Pain 5/10; slm 10/28 00:25 BP 130 / 74; Pulse 102; Resp 18; Temp 98.7; Pulse Ox 97% ; Pain 6/10; ajs 10/27 17:35 Body Mass Index 27.46 (70.31 kg, 160.02 cm) mt4 Vitals: 10/27 17:35 Log In Time: October 27, 2016 at 17:32. mt4 ED Course: 17:34 Patient visited by Ava Stevenson. mt4 17:34 Patient moved to Waiting mt4 17:35 Garrett Huber is Private Physician. mt4 17:36 Patient moved to Pre RCE mt4 17:58 Triage Initiated mb9 18:51 Patient visited by Nasreen Nicholas PCA. jb5 18:51 Patient moved to Triage 1 mb9 19:03 West Carty PA is PHCP. btw 19:03 Nirmal Goldberg DO is Attending Physician. btw 19:03 Patient visited by [place] Carty PA. btw 19:08 Patient moved to I4 / M4 jb5 19:22 Justus Espinoza MD is Hospitalizing Provider. btw 19:32 The patient / caregiver is instructed regarding the plan of care and ED course. Patient mcp has correct armband on for positive identification. Placed in gown. Bed in low position. Call light in reach. Adult w/ patient. 19:32 Inserted saline lock: 20 gauge in right antecubital area The patient tolerated the mcp procedure well. 19:33 Patient visited by Carol Levine RN. [facility] 20:22 [facility] Payment Agreement was scanned into [employer] and attached to record. ks16 22:48 Patient visited by Christina Rosas LPN. slm 23:34 Patient visited by Carol Levine RN. mcp 23:53 Patient visited by Carol Levine RN. mcp 10/28 00:25 Patient visited by Radha Quesada. ajs 00:39 No procedures done that require assistance. [facility] 02:02 T-Sheet-- Draft Copy was scanned into [employer] and attached to record. aileena Administered Medications: 10/27 19:29 Drug: Metoclopramide 20 mg [metoclopramide 5 mg/mL injection solution] Route: IV; Rate: mcp 80 mg/hr; Infused Over: 15 mins; Site: right antecubital; 19:55 Follow up: IV Status: Completed infusion; IV Intake: 20ml mcp 19:29 Drug: diphenhydrAMINE 50 mg [diphenhydramine 50 mg/mL injection solution (1 mL)] Route: mcp IVP; Site: right antecubital; 19:56 Drug: NS 0.9% 1000 ml [sodium chloride 0.9 % intravenous solution] Route: IV; Rate: mcp bolus; Site: right antecubital; 10/28 00:18 Drug: Ondansetron 4 mg [ondansetron HCl 2 mg/mL intravenous solution (2 mL)] Route: mcp IVP; Site: right antecubital; Intake: 10/27 19:55 IV: 20.00ml; Total: 20.00ml. [facility] Order Results: Lab Order: CBC WITH DIFFERENTIAL; SPEC'M 10/27/16 21:02 Test: WHITE BLOOD COUNT; Value: 9.0; Range: 4.0-10.0; Units: K/mm3; Status: F Test: RED BLOOD COUNT; Value: 5.01; Range: 4.00-5.40; Units: M/mm3; Status: F Test: HEMOGLOBIN; Value: 14.2; Range: 12.0-16.0; Units: g/dl; Status: F Test: HEMATOCRIT; Value: 41.4; Range: 36.0-47.0; Units: %; Status: F Test: MEAN CORPUSCULAR VOLUME; Value: 82.7; Range: 80.0-96.0; Units: fl; Status: F Test: MEAN CORPUSCULAR HEMOGLOBIN; Value: 28.4; Range: 27.0-33.0; Units: pg; Status: F Test: MEAN CORPUSCULAR HGB CONC; Value: 34.3; Range: 32.0-36.5; Units: g/dl; Status: F Test: RED CELL DISTRIBUTION WIDTH; Value: 12.9; Range: 11.5-14.5; Units: %; Status: F Test: PLATELET COUNT, AUTOMATED; Value: 279; Range: 150-450; Units: k/mm3; Status: F Test: NEUTROPHILS %; Value: 68.0; Range: 36.0-66.0; Abnormal: Above high normal; Units: %; Status: F Test: LYMPH %; Value: 19.9; Range: 24.0-44.0; Abnormal: Below low normal; Units: %; Status: F Test: MONO %; Value: 7.7; Range: 0.0-5.0; Abnormal: Above high normal; Units: %; Status: F Test: EOS %; Value: 1.1; Range: 0.0-3.0; Units: %; Status: F Test: BASO %; Value: 1.5; Range: 0.0-1.0; Abnormal: Above high normal; Units: %; Status: F Test: LARGE UNSTAINED CELL %; Value: 1.8; Range: 0.0-4.0; Units: %; Status: F Test: NEUTROPHILS #; Value: 6.1; Range: 1.8-7.7; Units: K/mm3; Status: F Test: LYMPH #; Value: 1.9; Range: 1.5-6.5; Units: K/mm3; Status: F Test: MONO #; Value: 0.7; Range: 0.0-0.8; Units: K/mm3; Status: F Test: EOS #; Value: 0.1; Range: 0.0-0.50; Units: K/mm3; Status: F Test: BASO #; Value: 0.1; Range: 0.0-0.2; Units: K/mm3; Status: F Test: LARGE UNSTAINED CELL #; Value: 0.2; Range: 0.0-0.4; Units: K/mm3; Status: F Lab Order: COMPLETE COMPHRENSIVE METABOLI; SPEC'M 10/27/16 21:02 Test: GLUCOSE, FASTING; Value: 98; Range: 70-105; Units: MG/DL; Status: F Test: BLOOD UREA NITROGEN; Value: 12; Range: 7-18; Units: MG/DL; Status: F Test: CREATININE FOR GFR; Value: 0.60; Range: 0.55-1.02; Units: MG/DL; Status: F Test: GLOMERULAR FILTRATION RATE; Value: > 60.0; Range: >60; Status: F Test: SODIUM LEVEL; Value: 143; Range: 136-145; Units: MEQ/L; Status: F Test: POTASSIUM SERUM; Value: 3.9; Range: 3.5-5.1; Units: MEQ/L; Status: F Test: CHLORIDE LEVEL; Value: 109; Range: 98-107; Abnormal: Above high normal; Units: MEQ/L; Status: F Test: CARBON DIOXIDE LEVEL; Value: 25; Range: 21-32; Units: MEQ/L; Status: F Test: ANION GAP; Value: 9; Range: 8-16; Units: MEQ/L; Status: F Test: CALCIUM LEVEL; Value: 8.4; Range: 8.5-10.1; Abnormal: Below low normal; Units: MG/DL; Status: F Test: AST/SGOT; Value: 9; Range: 15-37; Abnormal: Below low normal; Units: U/L; Status: F Test: ALT/SGPT; Value: 15; Range: 12-78; Units: U/L; Status: F Test: ALKALINE PHOSPHATASE; Value: 67; Range: 45-117; Units: U/L; Status: F Test: BILIRUBIN,TOTAL; Value: 0.2; Range: 0.2-1.0; Units: MG/DL; Status: F Test: TOTAL PROTEIN; Value: 6.9; Range: 6.4-8.2; Units: GM/DL; Status: F Test: ALBUMIN; Value: 3.8; Range: 3.2-5.2; Units: GM/DL; Status: F Test: ALBUMIN/GLOBULIN RATIO; Value: 1.23; Range: 1.00-1.93; Status: F Test Note: ; Units are mL/min/1.73 m2 Chronic Kidney Disease Staging per NKF: Stage I & II GFR >=60 Normal to Mildly Decreased Stage III GFR 30-59 Moderately Decreased Stage IV GFR 15-29 Severely Decreased Stage V GFR <15 Very Little GFR Left ESRD GFR <15 on DIGITAL LIBRARIAN Lab Order: MAGNESIUM LEVEL; SPEC'M 10/27/16 21:02 Test: MAGNESIUM LEVEL; Value: 1.9; Range: 1.8-2.4; Units: MG/DL; Status: F Lab Order: ETHYL ALCOHOL (ETHANOL); [facility] 10/27/16 21:02 Test: ETHYL ALCOHOL (ETHANOL); Value: < 0.003; Range: 0.000-0.010; Units: %; Status: F Lab Order: CARDIAC RISK PROFILE; [facility] 10/27/16 21:02 Test: TRIGLYCERIDES LEVEL; Value: 212; Range: <150; Abnormal: Above high normal; Units: MG/DL; Status: F Test: CHOLESTEROL LEVEL; Value: 153; Range: <200; Units: MG/DL; Status: F Test: HDL CHOLESTEROL; Value: 46; Range: >40; Units: MG/DL; Status: F Test: LDL CHOLESTEROL; Value: 64.6; Range: <100; Units: MG/DL; Status: F Test: NON-HDL-C; Value: 107; Units: MG/DL; Status: F Test: CHOLESTEROL RISK RATIO; Value: 3.326; Range: <5; Status: F Lab Order: CA 125; [facility] 10/27/16 21:02 Test: CA 125; Value: 12.1; Range: <30.2; Units: U/ML; Status: F Test Note: ; THE CA 125 ASSAY IS PERFORMED ON THE [employer] BY CHEMILUMINESCENCE AND SHOULD NOT BE COMPARED INTERCHANGEABLY WITH OTHER METHODS. IT SHOULD NOT BE USED ALONE A SCREENING TEST OR DIAGNOSIS FOR THE PRESENCE OR ABSENCE OF MALIGNANT DISEASE. PREDICTIONS OF DISEASE RECURRENCE SHOULD NOT BE BASED SOLELY ON VALUES OBTAINED FROM SERIAL PATIENT SERUM VALUES. Lab Order: [id number] ANTIGEN,CARBOHYDRATE AG; [facility] 10/27/16 21:02 Test: CA19-9 TUMOR MARKER,CARBOHYDRA; Value: 12.2; Range: <35.0; Units: U/ML; Status: F Test Note: ; THE CA 19-9 ASSAY IS PERFORMED ON THE [employer] BY CHEMILUMINESCENCE AND SHOULD NOT BE COMPARED INTERCHANGEABLY WITH OTHER METHODS. IT SHOULD NOT BE USED ALONE A SCREENING TEST OR DIAGNOSIS FOR THE PRESENCE OR ABSENCE OF MALIGNANT DISEASE. PREDICTIONS OF DISEASE RECURRENCE SHOULD NOT BE BASED SOLELY ON VALUES OBTAINED FROM SERIAL PATIENT SERUM VALUES. Outcome: 19:23 Decision to Hospitalize by Provider. btw 10/28 00:39 Discharge Assessment: patient administered narcotics - no. The following High Risk [facility] Discharge criteria are identified: None. Admitted to Pediatrics accompanied by tech, family with patient, via wheelchair, with chart. Condition: stable. Ultrasound Study completed. Property :Personal belongings accompany Pt. 00:45 Patient left the ED. [facility] Signatures: Carol Levine RN RN Nasreen Ahmadi, [employer] TRAINER jb5 Ava Stevenson mt4 [place] Carty PA PA btRadha Cool Stephanie,INFECTION PREVENTION PRACTITIONER INFECTION PREVENTION PRACTITIONER slDipesh De Los Santos RN RN mb9 Chantel, Gela Bolton, Reg Reg [id number] Chart Complete MTDD
--- NOTE | 2016-10-30 01:46 | EDDOCDS ---
Physician Documentation [facility] Name: Gracia Holloway Age: 26 yrs Sex: Female : 1990 Arrival Date: 10/27/2016 Time: 17:32 Bed I4 / M4 Private MD: Garrett Huber Disposition: 10/27/16 19:23 Hospitalization ordered by Justus Espinoza for Inpatient Admission. Preliminary diagnosis is Acute pancreatitis. - Bed requested for M PED. - Status is Inpatient Admission. mcp - Condition is Stable. - Problem is new. - Symptoms are unchanged. Historical: - Allergies: no known allergies; - Home Meds: 1. Percocet 5-325 mg Oral tab 1 tab every 4 hours (Last dose: 10/27/2016 15:00) 2. naproxen 500 mg Oral TbEC 1 tab 2 times per day (Last dose: 10/27/2016) - PMHx: Kidney stones; Pancreatitis; - PSHx: Tonsillectomy; fallopian tube removed; - Social history: Smoking status: Patient states was never smoker of tobacco. No barriers to communication noted, The patient speaks fluent Moldovan. - Family history: Not pertinent. - : The pt / caregiver states he / she is not on anticoagulants. Home medication list is obtained from the patient. - Exposure Risk Screening:: None identified. 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 3 in. (160.02 cm) (R); Pain 7/10; 22:48 BP 126 / 70; Pulse 108; Resp 16; Temp 99.1; Pulse Ox 99% ; Pain 5/10; slm 10/28 00:25 BP 130 / 74; Pulse 102; Resp 18; Temp 98.7; Pulse Ox 97% ; Pain 6/10; ajs 10/27 17:35 Body Mass Index 27.46 (70.31 kg, 160.02 cm) mt4 MDM: 10/27 19:09 IV Saline Lock ordered. btw 19:09 NS 0.9% 1000 ml IV at bolus once ordered. btw 19:09 Metoclopramide 20 mg IV at 80 mg/hr once over 15 mins ordered. btw 19:09 diphenhydrAMINE 50 mg IVP once ordered. btw 19:23 BED REQUEST+ADM ordered. EDMS 20:03 Financial registration complete. [email or web address] 20:22 [facility] Payment Agreement was scanned into [employer] and attached to record. [email or web address] 20:23 CBC WITH DIFFERENTIAL Ordered. EDMS 20:23 COMPLETE COMPHRENSIVE METABOLI Ordered. EDMS 20:23 MAGNESIUM LEVEL Ordered. EDMS 20:24 NPO DIET ordered. EDMS 20:37 ETHYL ALCOHOL (ETHANOL) Ordered. EDMS 20:38 CARDIAC RISK PROFILE Ordered. EDMS 20:56 CA 125 Ordered. EDMS 20:56 CA19-9 ANTIGEN,CARBOHYDRATE AG Ordered. EDMS 21:02 Urine Toxicology Ordered. EDMS 22:01 LIPASE Ordered. EDMS 22:02 CBC WITH DIFFERENTIAL Reviewed. ss12 22:02 COMPLETE COMPHRENSIVE METABOLI Reviewed. ss12 22:02 CARDIAC RISK PROFILE Reviewed. ss12 22:02 MAGNESIUM LEVEL Reviewed. ss12 22:02 ETHYL ALCOHOL (ETHANOL) Reviewed. ss12 22:58 Admission / Observation Status ordered. EDMS 10/28 00:19 Ondansetron 4 mg IVP once ordered. [facility] 02:02 T-Sheet-- Draft Copy was scanned into [employer] and attached to record. aileena Administered Medications: 10/27 19:29 Drug: Metoclopramide 20 mg [metoclopramide 5 mg/mL injection solution] Route: IV; Rate: mcp 80 mg/hr; Infused Over: 15 mins; Site: right antecubital; 19:55 Follow up: IV Status: Completed infusion; IV Intake: 20ml mcp 19:29 Drug: diphenhydrAMINE 50 mg [diphenhydramine 50 mg/mL injection solution (1 mL)] Route: mcp IVP; Site: right antecubital; 19:56 Drug: NS 0.9% 1000 ml [sodium chloride 0.9 % intravenous solution] Route: IV; Rate: mcp bolus; Site: right antecubital; 10/28 00:18 Drug: Ondansetron 4 mg [ondansetron HCl 2 mg/mL intravenous solution (2 mL)] Route: mcp IVP; Site: right antecubital; Signatures: Dispatcher [employer] EDMS Carol Levine, RN RN susi Arora HC, Yamilet RN [place] Solorzano PA PA btw Cory Stover ss12 Dipesh Lamb RN RN mb9 Arel, Tasneem Boltonberly, Reg Reg [email or web address] The chart was reviewed and I authenticate all verbal orders and agree with the evaluation and treatment provided.Corrections: (The following items were deleted from the chart) 10/27 20:37 20:29 CARDIAC RISK PROFILE ordered. EDMS EDMS 20:37 20:33 ETHYL ALCOHOL (ETHANOL)+LAB ordered. EDMS EDMS 20:57 20:48 CA19-9 ANTIGEN,CARBOHYDRATE AG ordered. EDMS EDMS 20:57 20:48 CA 125 ordered. EDMS EDMS 22:58 22:58 CARDIAC RISK PROFILE ordered. EDMS EDMS 22:58 22:58 CARDIAC RISK PROFILE ordered. EDMS EDMS 23:11 22:49 Abdomen, limited US ordered. EDMS EDMS Attachments: 20:22 [facility] Payment Agreement [email or web address] 10/28 02:02 T-Sheet-- Draft Copy [place] Chart Complete MTDD
--- NOTE | 2016-10-30 01:46 | EDDOCDS ---
Physician Documentation [facility] Name: Gracia Holloway Age: 26 yrs Sex: Female : 1990 Arrival Date: 10/27/2016 Time: 17:32 Bed I4 / M4 Private MD: Garrett Huber Disposition: 10/27/16 19:23 Hospitalization ordered by Justus Espinoza for Inpatient Admission. Preliminary diagnosis is Acute pancreatitis. - Bed requested for M PED. - Status is Inpatient Admission. mcp - Condition is Stable. - Problem is new. - Symptoms are unchanged. Historical: - Allergies: no known allergies; - Home Meds: 1. Percocet 5-325 mg Oral tab 1 tab every 4 hours (Last dose: 10/27/2016 15:00) 2. naproxen 500 mg Oral TbEC 1 tab 2 times per day (Last dose: 10/27/2016) - PMHx: Kidney stones; Pancreatitis; - PSHx: Tonsillectomy; fallopian tube removed; - Social history: Smoking status: Patient states was never smoker of tobacco. No barriers to communication noted, The patient speaks fluent Fijian. - Family history: Not pertinent. - : The pt / caregiver states he / she is not on anticoagulants. Home medication list is obtained from the patient. - Exposure Risk Screening:: None identified. 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 3 in. (160.02 cm) (R); Pain 7/10; 22:48 BP 126 / 70; Pulse 108; Resp 16; Temp 99.1; Pulse Ox 99% ; Pain 5/10; slm 10/28 00:25 BP 130 / 74; Pulse 102; Resp 18; Temp 98.7; Pulse Ox 97% ; Pain 6/10; ajs 10/27 17:35 Body Mass Index 27.46 (70.31 kg, 160.02 cm) mt4 MDM: 10/27 19:09 IV Saline Lock ordered. btw 19:09 NS 0.9% 1000 ml IV at bolus once ordered. btw 19:09 Metoclopramide 20 mg IV at 80 mg/hr once over 15 mins ordered. btw 19:09 diphenhydrAMINE 50 mg IVP once ordered. btw 19:23 BED REQUEST+ADM ordered. EDMS 20:03 Financial registration complete. [email or web address] 20:22 [facility] Payment Agreement was scanned into [employer] and attached to record. [email or web address] 20:23 CBC WITH DIFFERENTIAL Ordered. EDMS 20:23 COMPLETE COMPHRENSIVE METABOLI Ordered. EDMS 20:23 MAGNESIUM LEVEL Ordered. EDMS 20:24 NPO DIET ordered. EDMS 20:37 ETHYL ALCOHOL (ETHANOL) Ordered. EDMS 20:38 CARDIAC RISK PROFILE Ordered. EDMS 20:56 CA 125 Ordered. EDMS 20:56 CA19-9 ANTIGEN,CARBOHYDRATE AG Ordered. EDMS 21:02 Urine Toxicology Ordered. EDMS 22:01 LIPASE Ordered. EDMS 22:02 CBC WITH DIFFERENTIAL Reviewed. ss12 22:02 COMPLETE COMPHRENSIVE METABOLI Reviewed. ss12 22:02 CARDIAC RISK PROFILE Reviewed. ss12 22:02 MAGNESIUM LEVEL Reviewed. ss12 22:02 ETHYL ALCOHOL (ETHANOL) Reviewed. ss12 22:58 Admission / Observation Status ordered. EDMS 10/28 00:19 Ondansetron 4 mg IVP once ordered. [facility] 02:02 T-Sheet-- Draft Copy was scanned into [employer] and attached to record. aileena Administered Medications: 10/27 19:29 Drug: Metoclopramide 20 mg [metoclopramide 5 mg/mL injection solution] Route: IV; Rate: mcp 80 mg/hr; Infused Over: 15 mins; Site: right antecubital; 19:55 Follow up: IV Status: Completed infusion; IV Intake: 20ml mcp 19:29 Drug: diphenhydrAMINE 50 mg [diphenhydramine 50 mg/mL injection solution (1 mL)] Route: mcp IVP; Site: right antecubital; 19:56 Drug: NS 0.9% 1000 ml [sodium chloride 0.9 % intravenous solution] Route: IV; Rate: mcp bolus; Site: right antecubital; 10/28 00:18 Drug: Ondansetron 4 mg [ondansetron HCl 2 mg/mL intravenous solution (2 mL)] Route: mcp IVP; Site: right antecubital; Signatures: Dispatcher [employer] EDMS Carol Levine, RN RN susi Arora HC, Yamilet RN [place] PA PA btw Cory Stover ss12 Dipesh Lamb RN RN mb9 Arel, Tasneem Boltonberly, Reg Reg [email or web address] The chart was reviewed and I authenticate all verbal orders and agree with the evaluation and treatment provided.Corrections: (The following items were deleted from the chart) 10/27 20:37 20:29 CARDIAC RISK PROFILE ordered. EDMS EDMS 20:37 20:33 ETHYL ALCOHOL (ETHANOL)+LAB ordered. EDMS EDMS 20:57 20:48 CA19-9 ANTIGEN,CARBOHYDRATE AG ordered. EDMS EDMS 20:57 20:48 CA 125 ordered. EDMS EDMS 22:58 22:58 CARDIAC RISK PROFILE ordered. EDMS EDMS 22:58 22:58 CARDIAC RISK PROFILE ordered. EDMS EDMS 23:11 22:49 Abdomen, limited US ordered. EDMS EDMS Attachments: 20:22 [facility] [place] Payment Agreement [email or web address] 10/28 02:02 T-Sheet-- Draft Copy [place] Chart Complete MTDD
[2016-10-30 03:59] VITALS: BP 136/79
[2016-10-30 06:53] LABS: BASO # 0.1 K/mm3 (0.0-0.2); BASO % 2.2 % (0.0-1.0); EOS # 0.1 K/mm3 (0.0-0.50); EOS % 2.4 % (0.0-3.0); LARGE UNSTAINED CELL # 0.1 K/mm3 (0.0-0.4); LARGE UNSTAINED CELL % 1.8 % (0.0-4.0); LYMPH % 34.1 % (24.0-44.0); MEAN CORPUSCULAR HEMOGLOBIN 28.4 pg (27.0-33.0); MEAN CORPUSCULAR HGB CONC 34.5 g/dl (32.0-36.5); MEAN CORPUSCULAR VOLUME 82.3 fl (80.0-96.0); MONO # 0.4 K/mm3 (0.0-0.8); MONO % 6.6 % (0.0-5.0); NEUTROPHILS % 52.9 % (36.0-66.0); PLATELET COUNT, AUTOMATED 264 k/mm3 (150-450); RED CELL DISTRIBUTION WIDTH 12.6 % (11.5-14.5); WHITE BLOOD COUNT 5.7 K/mm3 (4.0-10.0)
[2016-10-30 07:19] LABS: ALBUMIN 3.3 GM/DL (3.2-5.2); ALBUMIN/GLOBULIN RATIO 1.22 (1.00-1.93); ALKALINE PHOSPHATASE 60 U/L (45-117); ALT/SGPT 13 U/L (12-78); ANION GAP 6 MEQ/L (8-16); AST/SGOT 9 U/L (15-37); BILIRUBIN,TOTAL 0.4 MG/DL (0.2-1.0); BLOOD UREA NITROGEN 9 MG/DL (7-18); CALCIUM LEVEL 8.3 MG/DL (8.5-10.1); CARBON DIOXIDE LEVEL 27 MEQ/L (21-32); CHLORIDE LEVEL 107 MEQ/L (98-107); CREATININE FOR GFR 0.54 MG/DL (0.55-1.02); GLOMERULAR FILTRATION RATE > 60.0 (>60); GLUCOSE, FASTING 90 MG/DL (70-105); MAGNESIUM LEVEL 1.8 MG/DL (1.8-2.4); POTASSIUM SERUM 4.4 MEQ/L (3.5-5.1); SODIUM LEVEL 140 MEQ/L (136-145)
[2016-10-30 08:32] VITALS: BP 127/76
[2016-10-30] MEDS: ONDANSETRON 4MG/2ML VIAL (J2405) IV PRN (08:38)
[2016-10-30] MEDS: ENOXAPARIN 40 MG/0.4 ML SYRINGE (J1650) SC SCH (08:39)
--- NOTE | 2016-10-30 15:00 | IPNPDOC ---
Text Note Date of Service The patient was seen on 10/30/16 at 14:56. NOTE Subjective: Abdominal pain and nausea have resolved. Tolerating clear liquid diet. Objective: Vitals: (see below) General: No acute distress, laying comfortably in bed. HEENT: Moist mucous membranes. Neck: No JVD or lymphadenopathy Cardiac: RRR, No murmurs Pulm: Clear to auscultation b/l. No wheezing, rhonchi Abd: Epigastric tenderness. No rebound, guarding or rigidity. ND + BS Ext: No edema or cyanosis Labs (see below) Images: CT Abd/pelvis 10/27/16 Impression: Bilobed complex cystic structure within the head of the pancreas measuring 2.3 x 1.9 cm with minimal peripheral enhancement. No biliary dilatation. Unremarkable gallbladder, unremarkable appendix. Recommend short interval follow-up CT and/or gastroenterology evaluation with consideration of endoscopic ultrasound or PET scan to evaluate complex cystic structure within the head of pancreas. Moderate generalized retained colonic stool Assessment/Plan 1. Pancreatitis with a complex appearing cystic structure. Triglyceride level 212, lipase 652--> trending down.. No significant alcohol intake. RUQ u/s negative for gallstones. Unfortunately we do not have gastroenterology at this time. Family history of pancreatic cancer in the grandmother. MRI Abd. preliminary discussed with pt . Will need outpt repeat CT abd/pelvis, and possible endoscopic u/s. F/u outpt GI. Pain has resolved. Tolerating clears, advance to regular diet when tolerates. 2. History of ectopic 3. History of pseudoseizures 4. History of migraines 5. History of nephrolithiasis DVT prophy: Enoxaparin Plan to d/c in the next 24 hours if tolerates regular diet. VS,Fishbone, I+O VS, Fishbone, I+O Laboratory Tests 10/30/16 06:37 Calcium Level 8.3 L, Aspartate Amino Transf (AST/SGOT) 9 L, Alanine Aminotransferase (ALT/SGPT) 13, Alkaline Phosphatase 60, Total Bilirubin 0.4, Total Protein 6.0 L, Albumin 3.3, Red Blood Count 4.33, Mean Corpuscular Volume 82.3, Mean Corpuscular Hemoglobin 28.4, Mean Corpuscular Hemoglobin Concent 34.5 , Red Cell Distribution Width 12.6, Neutrophils (%) (Auto) 52.9, Lymphocytes (% ) (Auto) 34.1, Monocytes (%) (Auto) 6.6 H, Eosinophils (%) (Auto) 2.4, Basophils (%) (Auto) 2.2 H, Neutrophils # (Auto) 3.0, Lymphocytes # (Auto) 2.0, Monocytes # (Auto) 0.4, Eosinophils # (Auto) 0.1, Basophils # (Auto) 0.1 Vital Signs Date Time Temp Pulse Resp B/P Pulse Ox O2 Delivery O2 Flow Rate FiO2 10/30/16 08:32 97.1 94 18 127/76 98 Room Air I&O- Last 24 Hours up to 6 AM 10/30/16 06:00 Intake Total 2660 ml Output Total 2050 ml Balance 610 ml ANDREW SILVA MD Oct 30, 2016 15:00
[2016-10-30 16:00] VITALS: BP 131/85
[2016-10-30 20:00] VITALS: BP 130/76
[2016-10-31] VITALS: BP 135/86
[2016-10-31] MEDS: LR 1,000 ML IV SCH (05:29)
[2016-10-31 06:44] LABS: BASO # 0.1 K/mm3 (0.0-0.2); EOS # 0.2 K/mm3 (0.0-0.50); EOS % 2.6 % (0.0-3.0); LARGE UNSTAINED CELL # 0.2 K/mm3 (0.0-0.4); LARGE UNSTAINED CELL % 2.8 % (0.0-4.0); LYMPH # 2.1 K/mm3 (1.5-6.5); LYMPH % 35.7 % (24.0-44.0); MEAN CORPUSCULAR HGB CONC 33.3 g/dl (32.0-36.5); MEAN CORPUSCULAR VOLUME 84.1 fl (80.0-96.0); MONO # 0.5 K/mm3 (0.0-0.8); MONO % 7.6 % (0.0-5.0); NEUTROPHILS % 50.3 % (36.0-66.0); PLATELET COUNT, AUTOMATED 266 k/mm3 (150-450); RED CELL DISTRIBUTION WIDTH 11.8 % (11.5-14.5); WHITE BLOOD COUNT 5.9 K/mm3 (4.0-10.0)
[2016-10-31 07:02] LABS: ALBUMIN 3.3 GM/DL (3.2-5.2); ALBUMIN/GLOBULIN RATIO 1.18 (1.00-1.93); ALKALINE PHOSPHATASE 53 U/L (45-117); ALT/SGPT 14 U/L (12-78); ANION GAP 8 MEQ/L (8-16); AST/SGOT 13 U/L (15-37); BILIRUBIN,TOTAL 0.2 MG/DL (0.2-1.0); BLOOD UREA NITROGEN 7 MG/DL (7-18); CALCIUM LEVEL 8.5 MG/DL (8.5-10.1); CARBON DIOXIDE LEVEL 26 MEQ/L (21-32); CHLORIDE LEVEL 106 MEQ/L (98-107); CREATININE FOR GFR 0.55 MG/DL (0.55-1.02); GLOMERULAR FILTRATION RATE > 60.0 (>60); GLUCOSE, FASTING 102 MG/DL (70-105); MAGNESIUM LEVEL 1.5 MG/DL (1.8-2.4); POTASSIUM SERUM 3.7 MEQ/L (3.5-5.1); SODIUM LEVEL 140 MEQ/L (136-145); TOTAL PROTEIN 6.1 GM/DL (6.4-8.2)
[2016-10-31 08:00] VITALS: BP 122/72
[2016-10-31] MEDS: ENOXAPARIN 40 MG/0.4 ML SYRINGE (J1650) SC SCH (08:34)
[2016-10-31] MEDS ORDERED: MAGNESIUM OXIDE 400 MG TAB (MAG-OX) PO SCH (09:00)
[2016-10-31 12:00] VITALS: BP 130/78
--- NOTE | 2016-10-31 16:03 | DSES ---
DATE OF ADMISSION: 10/27/2016 DATE OF DISCHARGE: 10/31/2016 ATTENDING PHYSICIAN: Dr. Flor Espinoza DICTATING PHYSICIAN: Dr. Flor Espinoza PRIMARY CARE PHYSICIAN: Unknown. REFERRING PHYSICIAN: Unknown. CONSULTING PHYSICIAN: None. CONDITION ON DISCHARGE: Stable. FINAL DIAGNOSIS: Acute pancreatitis. PROCEDURES: None. HISTORY OF PRESENT ILLNESS: The patient is a 26-year-old female with a past medical history of ectopic , pseudoseizure, migraine headache, nephrolithiasis, who presented to the emergency room with severe abdominal pain, which is mostly located in her right side. The patient stated that the pain started on [place] and she woke up because of the pain. The patient states that the pain is a 7 out of 10, sharp, mostly located in the back between the scapula and anterior radiation. The patient has expressed that she has been nauseated since the pain started. Had two episodes of vomiting. The patient also noted a fever of 101. In the emergency room, the patient had a CT scan of her abdomen and pelvis with contrast that showed a bilobed complex cystic structure within the head of the pancreas measuring 2.3 x 1.9 cm. The patient had a lipase of 394. The patient was discharged home and asked to followup with her primary care provider and given Naproxen. The patient followed up with her primary care provider, who got another lipase level, which was elevated at 1586. The patient expressed that her symptoms started and the patient had lost her appetite and returned back to the emergency room. The patient was admitted for acute pancreatitis. HOSPITALIZATION COURSE: 1. Acute pancreatitis with complex appearing cystic structure, triglyceride level of 212, lipase level has been elevated initially and has been trending down. The patient denies any significant alcohol intake. Right upper quadrant ultrasound has been negative for any gallstones. Unfortunately, we do not have any gastroenterology at this time. The patient's clinical status has shown significant improvement. Her abdominal pain has resolved. She has been tolerating a full regular diet and has been advised to this point. She has been put on aggressive IV fluid hydration. The patient has been advised to followup with her primary care provider and collet driller for repeat imaging of her abdomen. 2. History of ectopic . 3. History of pseudoseizure. 4. History of migraines. 5. History of nephrolithiasis. 6. Deep vein thrombosis (DVT) prophylaxis. She has been on Lovenox. DISCHARGE MEDICATIONS: The patient is being discharged home with her home medications, which include: - Percocet 5/325 one tablet by mouth every four hours as needed for pain Medications that were stopped included Naproxen 500 mg by mouth twice a day as needed for pain. DISCHARGE INSTRUCTIONS: The patient was advised to followup with primary care provider and collet driller in the next 7 days. She has been advised to confirm/schedule appointment. She has been advised to remain compliant with treatment plan and medications and return to the emergency room if she experiences any problems. Time spent on discharge: 35 minutes.
--- NOTE | 2016-11-01 11:38 | REPUSA ---
CLINICAL HISTORY: Right-sided abdominal pain. TECHNIQUE: MRI of the abdomen was performed utilizing multiple sequences in axial, coronal and sagit teresita planes without and with IV contrast material. COMMENTS: The liver demonstrates normal signal intensity on all sequences without evidence of mass or defect. There is no intra or extrahepatic biliary ductal dilatation. The spleen is normal. The gallbladder is present and is unremarkable. Note is made of a 2.3 x 1.5 cm cystic lesion in the region of pancre atic head and uncinate process which appears to be simple without any enhancing components, septation s or nodularity. Differential includes pancreatic pseudocyst, congenial cyst as well as benign cysti c neoplasm such as side branch IPMT (intraductal papillary or mucinous tumor). There is no evidence of adrenal mass. The kidneys are normal in size, shape and configuration. Ther e is no evidence of renal mass. There is no hydroureter or hydronephrosis. There is no wall thickening within the visualized bowel. No evidence for small or large bowel obstru ction. There is no evidence of abnormal ascites or lymphadenopathy. Images of the lung bases reveal no evidence for pleural effusion. IMPRESSION: 2.3 x 1.5 cm cystic lesion in the region of pancreatic head and uncinate process which appears to be simple without any enhancing components, septations or nodularity. Differential includes pancreatic pseudocyst, congenial cyst as well as benign cystic neoplasm such as side branch IPMT (intraductal pa pillary or mucinous tumors). The lesion may be biopsied for confirmation. Alternatively short-term f ollowup study may be obtained in 6 months to document stability. Thank you for your kind referral of this patient. We appreciate the opportunity to participate in th is patient's care.
== END 2016-10-31 12:54 | disposition home or self-care (01) | DRG 282 ==
LOC: M ED 17:32 → M PED 22:53 → M ED INP 22:54 → OBSVTOIN 22:54 → M PED 22:54
PROVIDERS: ADMIT Internal Medicine; ATTEND Internal Medicine
DX: K85.90 Acute pancreatitis without necrosis or infection, unspecified (principal); K86.2 Cyst of pancreas

== ENCOUNTER → 2016-12-14 | Outpatient (CLI) | payer BC ==
[~2016-12-14] MED LIST changes: +NAPR500T2 PO
[2016-12-14 15:31] LABS: CONTROL LINE UCG INT CTR LINE PRESENT
== END ==
LOC: M LRY 08:22
PROVIDERS: ATTEND Nurse Practitioner Family
DX: N91.2 Amenorrhea, unspecified (principal)

== ENCOUNTER → 2016-12-20 | Outpatient (REF) | payer BC | LOC: M LAB REF 12:58 | PROVIDERS: ATTEND Nurse Practitioner Family | DX: N91.2 Amenorrhea, unspecified (principal) ==

== ENCOUNTER → 2017-02-16 | Outpatient (REF) | payer BC | LOC: M LAB REF 15:04 | PROVIDERS: ATTEND Internal Medicine Gastroenterology | DX: K85.00 Idiopathic acute pancreatitis without necrosis or infection (principal); K86.3 Pseudocyst of pancreas ==

== ENCOUNTER → 2017-06-25 | Outpatient (CLI) | payer BC ==
[~2017-06-25] MED LIST changes: +AMOX875T; -NAPR500T2 PO; +NAPR500T3 PO; +PERC5TAB12 PO; -PERC5TAB6 PO; +PRENTAB40 PO
--- NOTE | 2017-06-25 22:13 | REP ---
Clinical: Anatomical evaluation. Comparison: None . Findings: Examination demonstrates a single live intrauterine in transverse (head to the left side) presentation. motion is identified by technologist. Placenta is noted anteriorly and grade zero without evidence for placenta previa or abruption. Amniotic fluid volume is normal. Cervix measures 5.5 cm in length and appears closed. No evidence for nuchal cord. Gestational age by LMP 20 weeks 6 days with KAYLA 11/06/2018 . Gestational age by current measurements 20 weeks 1 day with KAYLA 11/11/2017 . FHR equals 147 beats per minute. BPD 4.7 cm 20 weeks 2 days HC 17.6 cm 20 weeks 1 day AC 15.1 cm 20 weeks 2 days FL 3.4 cm 20 weeks 6 days HL 3.1 cm 20 weeks 2 days HC/AC ratio 1.17 Estimated weight 358 grams ( 50th percentile). Anatomical assessment demonstrates normal structures including cranium, choroid plexus, cavum, cerebellum/posterior fossa, facial features, lungs, diaphragm, stomach, cord insertion/three-vessel cord, kidneys/bladder, spine, and extremities. Impression: Single live intrauterine in transverse lie demonstrating appropriate interval growth. Limited evaluation of the heart and ventricular outflow tracts noted. Remainder of the examination is normal. Signed by Jaime Melendez MD 06/25/2017 10:06 P
== END ==
LOC: MERGE 11:33 → M SMT 11:33
PROVIDERS: ATTEND Specialist
DX: Z34.82 Encounter for supervision of other normal pregnancy, second trimester (principal); Z3A.20 20 weeks gestation of pregnancy

== ENCOUNTER → 2017-07-27 | Outpatient (CLI) | payer BC ==
--- NOTE | 2017-07-27 18:30 | REP ---
OB ULTRASOUND: Real-time sonographic evaluation of the gravid uterus is performed. There is a single living intrauterine gestation with estimated gestational age 24 weeks 6 days, EDC 11/10/2017. BPD 59 mm = 24 weeks 1 day HC 224 mm = 24 weeks 3 days AC 217 mm = 26 weeks 1 day FL 45 mm = 24 weeks 5 days HC/AC ratio 1.03, within normal range. Estimated weight 805 grams, 59th percentile. Cervix is closed and measures 5.1 cm in length. heart rate 137 beats per minute. SEEN/GROSSLY UNREMARKABLE Lateral ventricles yes Posterior fossa yes Upper lip yes Four-chamber heart yes LVOT yes RVOT yes Stomach yes Cord insertion yes Three vessel cord yes Kidneys yes Bladder yes Spine no position: Variable. Placenta: Anterior and grade 1 with no previa or abruption. Amniotic fluid: Within normal limits. Signed by Mark Bull MD 07/30/2017 04:11 P
== END ==
LOC: M RAD 15:57 → MERGE 16:00
PROVIDERS: ATTEND Specialist
DX: Z36 Encounter for antenatal screening of mother (principal)

== ENCOUNTER 2017-08-04 15:30 | Emergency (ER) | payer BC ==
[~2017-08-04 15:30] MED LIST changes: -AMOX875T; -PRENTAB40 PO
[2017-08-04] MEDS ORDERED: AMOX875T (15:41)
[2017-08-04] MEDS ORDERED: PRENTAB40 PO (15:41)
[2017-08-04] MEDS ORDERED: ONDANSETRON 4MG/2ML VIAL (J2405) As Ordered ONE (15:52)
[2017-08-04 16:06] VITALS: O2SAT 99
[2017-08-04] MEDS: ONDANSETRON 4MG/2ML VIAL (J2405) IV ONE (16:09)
[2017-08-04] MEDS: NS 500 ML IV ONE (16:09)
[2017-08-04 16:10] LABS: ABG BASE EXCESS -5.1 (-2.0-2.0); ABG HCO3 17.9 MEQ/L (22.0-26.0); ABG PARTIAL PRESSURE CO2 28.2 mmHg (35.0-45.0); ABG PARTIAL PRESSURE O2 97.1 mmHg (75.0-100.0); ABG STANDARD HCO3 20.3 MEQ/L (22.0-26.0); ABG TOTAL CO2 18.8 MEQ/L (22.0-29.0); ABG pH (ARTERIAL) 7.421 UNITS (7.350-7.450)
[2017-08-04 16:17] LABS: MEAN CORPUSCULAR HEMOGLOBIN 28.9 pg (27.0-33.0); MEAN CORPUSCULAR HGB CONC 33.6 g/dl (32.0-36.5); MEAN CORPUSCULAR VOLUME 85.9 fl (80.0-96.0); PLATELET COUNT, AUTOMATED 286 10^3/uL (150-450); RED CELL DISTRIBUTION WIDTH 13.1 % (11.5-14.5); WHITE BLOOD COUNT 11.9 10^3/uL (4.0-10.0)
[2017-08-04 16:37] LABS: ADD MANUAL DIFFER YES; DIFF SLIDE NUMBER 164
[2017-08-04 16:39] LABS: EOSINOPHILS 2 % (0-5)
[2017-08-04 16:46] LABS: ALBUMIN 2.9 GM/DL (3.2-5.2); ALBUMIN/GLOBULIN RATIO 0.81 (1.00-1.93); ALKALINE PHOSPHATASE 61 U/L (45-117); ALT/SGPT 18 U/L (12-78); ANION GAP 10 MEQ/L (8-16); AST/SGOT 15 U/L (15-37); BILIRUBIN,DIRECT < 0.1 MG/DL (0.0-0.2); BILIRUBIN,TOTAL 0.2 MG/DL (0.2-1.0); BLOOD UREA NITROGEN 9 MG/DL (7-18); CALCIUM LEVEL 8.5 MG/DL (8.5-10.1); CARBON DIOXIDE LEVEL 20 MEQ/L (21-32); CHLORIDE LEVEL 106 MEQ/L (98-107); CREATININE FOR GFR 0.48 MG/DL (0.55-1.02); GLOMERULAR FILTRATION RATE > 60.0 (>60); GLUCOSE, FASTING 111 MG/DL (70-105); POTASSIUM SERUM 3.4 MEQ/L (3.5-5.1); SODIUM LEVEL 136 MEQ/L (136-145); TOTAL PROTEIN 6.5 GM/DL (6.4-8.2)
[2017-08-04 17:37] VITALS: BP 119/74
--- NOTE | 2017-08-05 11:39 | REP ---
REASON: Dyspnea. COMPARISON: 08/16/2010 FINDINGS: The technique utilized in obtaining the radiograph has magnified the cardiac silhouette and accentuated the interstitial markings. The superior mediastinal structures are midline. The cardiac silhouette is unremarkable in size, shape, and position. The diaphragmatic surfaces of the lungs are regular, and the costophrenic angles are clear. The pulmonary woody are clear. The imaged osseous structures are intact. IMPRESSION: There is no acute cardiopulmonary disease. Signed by Carson Brandt DO 08/05/2017 09:46 A
--- NOTE | 2017-08-05 12:39 | ECGEPIP ---
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
== END 2017-08-04 17:43 | disposition admitted as inpatient to this hospital (09) ==
LOC: EDBD 15:30 → M ED 15:30
DX: O26.893 Other specified pregnancy related conditions, third trimester (principal); R06.02 Shortness of breath; Z3A.26 26 weeks gestation of pregnancy
CPT/HCPCS: 36600; 71010; 80048; 80076; 82803; 83880; 85025; 87804; 87880; 93005; 93041; 96374; 99285; J2405

== ENCOUNTER 2017-08-04 17:51 | Outpatient (CLI) | payer BC ==
[~2017-08-04] VITALS: Ht 160 cm; Wt 75.7 kg
[~2017-08-04 17:51] MED LIST changes: +AMOX875T; +PRENTAB40 PO
[2017-08-04 18:10] VITALS: BP 119/87
[2017-08-04] MEDS ORDERED: ACETAMINOPHEN 500 MG TAB PO PRN (18:15)
[2017-08-04 19:23] VITALS: BP 117/68
[2017-08-04] MEDS ORDERED: AMOXICILLIN 875 MG TAB PO SCH (21:00)
== END 2017-08-04 19:59 | disposition home or self-care (01) ==
LOC: M LDO 17:51
PROVIDERS: ATTEND Specialist
DX: O99.89 Other specified diseases and conditions complicating pregnancy, childbirth and the puerperium (principal); Z3A.26 26 weeks gestation of pregnancy; J06.9 Acute upper respiratory infection, unspecified; R06.02 Shortness of breath

== ENCOUNTER → 2017-08-17 | Outpatient (CLI) | payer BC ==
[2017-08-17 20:00] LABS: BASO % 0.4 % (0.0-1.0); EOS # 0.2 10^3/uL (0.0-0.50); EOS % 1.6 % (0.0-3.0); IMMATURE GRANULOCYTE % 0.4 % (0-0); LYMPH # 1.9 10^3/uL (1.5-6.5); LYMPH % 18.7 % (24.0-44.0); MEAN CORPUSCULAR HEMOGLOBIN 28.5 pg (27.0-33.0); MEAN CORPUSCULAR HGB CONC 32.7 g/dl (32.0-36.5); MEAN CORPUSCULAR VOLUME 87.3 fl (80.0-96.0); MONO # 0.8 10^3/uL (0.0-0.8); MONO % 7.5 % (0.0-5.0); NEUTROPHILS # 7.1 10^3/uL (1.8-7.7); NEUTROPHILS % 71.4 % (36.0-66.0); PLATELET COUNT, AUTOMATED 247 10^3/uL (150-450); RED CELL DISTRIBUTION WIDTH 13.2 % (11.5-14.5); WHITE BLOOD COUNT 9.9 10^3/uL (4.0-10.0)
== END ==
LOC: M LRY 16:00
PROVIDERS: ATTEND Specialist
DX: Z34.82 Encounter for supervision of other normal pregnancy, second trimester (principal); Z3A.00 Weeks of gestation of pregnancy not specified

== ENCOUNTER → 2017-08-22 | Outpatient (REF) | payer BC | LOC: M LAB REF 15:54 | PROVIDERS: ATTEND Advanced Practice Midwife | DX: O60.03 Preterm labor without delivery, third trimester (principal); Z3A.00 Weeks of gestation of pregnancy not specified ==

== ENCOUNTER → 2017-08-24 | Outpatient (CLI) | payer BC | LOC: M LAB 08:08 | PROVIDERS: ATTEND Specialist | DX: Z34.82 Encounter for supervision of other normal pregnancy, second trimester (principal); Z3A.00 Weeks of gestation of pregnancy not specified ==

== ENCOUNTER 2017-09-26 15:08 | Outpatient (CLI) | payer BC ==
[~2017-09-26] VITALS: Ht 160 cm; Wt 79.3 kg
[2017-09-26] MEDS ORDERED: LACTATED RINGER'S 1000 ML IV STA (16:06)
[2017-09-26] MEDS ORDERED: LR 1,000 ML IV SCH (16:06)
[2017-09-26 18:22] VITALS: BP 137/88
[2017-09-26 18:54] VITALS: BP 141/86
[2017-09-26] MEDS ORDERED: TERBUTALINE SULFATE 1 MG/ML VIAL (J3105) SC ONE (19:00)
== END 2017-09-26 20:12 | disposition home or self-care (01) ==
LOC: M LDO 15:08
PROVIDERS: ATTEND Specialist
DX: O47.03 False labor before 37 completed weeks of gestation, third trimester (principal); Z3A.33 33 weeks gestation of pregnancy
CPT/HCPCS: 59025; 96372; J3105

== ENCOUNTER 2017-09-27 14:32 | Outpatient (CLI) | payer BC ==
[~2017-09-27] VITALS: Ht 160 cm; Wt 78.7 kg
[2017-09-27 14:49] VITALS: BP 123/85
[2017-09-27] MEDS ORDERED: ONDANSETRON 4MG/2ML VIAL (J2405) IV PRN (15:00)
[2017-09-27] MEDS ORDERED: LR 1,000 ML IV SCH (15:00)
[2017-09-27] MEDS ORDERED: BETAMETHASONE SOLUSPAN 6MG/ML INJ 5ML (J0702) IM SCH (15:00)
[2017-09-27] MEDS ORDERED: MVI -ADULT INJECTION 10 ML VIAL IV ONE (15:00)
[2017-09-27] MEDS ORDERED: LACTATED RINGER'S 1000 ML IV ONE (15:00)
[2017-09-27 15:42] VITALS: BP 115/68
[2017-09-27] MEDS ORDERED: LR IV ONE (16:00)
[2017-09-27] MEDS ORDERED: MULTIVITAMIN ADULT IV ONE (16:00)
[2017-09-27 16:45] VITALS: BP 114/82
[2017-09-27 18:04] VITALS: BP 128/73
[2017-09-27 19:25] VITALS: BP 116/71
== END 2017-09-27 20:30 | disposition home or self-care (01) ==
LOC: M LDO 14:32
PROVIDERS: ATTEND Advanced Practice Midwife
DX: O47.03 False labor before 37 completed weeks of gestation, third trimester (principal); O21.9 Vomiting of pregnancy, unspecified; Z3A.33 33 weeks gestation of pregnancy
CPT/HCPCS: 59025; 96374; J0702; J2405

== ENCOUNTER → 2017-09-27 | Outpatient (REF) | payer BC | LOC: M LAB REF 13:20 | PROVIDERS: ATTEND Advanced Practice Midwife | DX: Z34.83 Encounter for supervision of other normal pregnancy, third trimester (principal) ==

== ENCOUNTER 2017-09-28 14:51 | Outpatient (CLI) | payer BC ==
[~2017-09-28] VITALS: Ht 160 cm; Wt 78.8 kg
[2017-09-28 15:13] VITALS: BP 131/86
[2017-09-28] MEDS ORDERED: BETAMETHASONE SOLUSPAN 6MG/ML INJ 5ML (J0702) IM ONE (16:15)
== END 2017-09-28 16:03 | disposition home or self-care (01) ==
LOC: M LDO 14:51
PROVIDERS: ATTEND Obstetrics & Gynecology
DX: O60.02 Preterm labor without delivery, second trimester (principal)
CPT/HCPCS: 59025; 96372; J0702

== ENCOUNTER 2017-10-01 23:21 | Outpatient (CLI) | payer BC ==
[~2017-10-01] VITALS: Ht 160 cm; Wt 80.0 kg
[2017-10-02] VITALS (9 sets, daily range): BP systolic 104–145; BP diastolic 61–96
[2017-10-02] MEDS ORDERED: LR 1,000 ML IV SCH (01:09)
[2017-10-02] MEDS ORDERED: BUTORPHANOL 2 MG/ML INJ (J0595) IV ONE (01:15)
[2017-10-02] MEDS ORDERED: PROMETHAZINE INJ 25 MG/ML VIAL (J2550) IV ONE (01:15)
[2017-10-02] MEDS ORDERED: TERBUTALINE SULFATE 1 MG/ML VIAL (J3105) SC ONE ×2 (04:30)
== END 2017-10-02 11:27 | disposition home or self-care (01) ==
LOC: M LDO 23:21
PROVIDERS: ATTEND Advanced Practice Midwife
DX: O47.03 False labor before 37 completed weeks of gestation, third trimester (principal); Z3A.34 34 weeks gestation of pregnancy
CPT/HCPCS: 59025; 96360; 96361; 96372; J0595; J3105

== ENCOUNTER → 2017-10-11 | Outpatient (CLI) | payer BC ==
[2017-10-11 18:27] LABS: ALBUMIN/GLOBULIN RATIO 0.79 (1.00-1.93); ALKALINE PHOSPHATASE 148 U/L (45-117); ALT/SGPT 14 U/L (12-78); ANION GAP 10 MEQ/L (8-16); AST/SGOT 17 U/L (7-37); BILIRUBIN,TOTAL 0.2 MG/DL (0.2-1.0); BLOOD UREA NITROGEN 9 MG/DL (7-18); CALCIUM LEVEL 8.9 MG/DL (8.5-10.1); CARBON DIOXIDE LEVEL 25 MEQ/L (21-32); CHLORIDE LEVEL 104 MEQ/L (98-107); CREATININE FOR GFR 0.47 MG/DL (0.55-1.02); GLOMERULAR FILTRATION RATE > 60.0 (>60); GLUCOSE, FASTING 70 MG/DL (70-105); SODIUM LEVEL 139 MEQ/L (136-145); TOTAL PROTEIN 6.8 GM/DL (6.4-8.2); URIC ACID 3.7 MG/DL (2.6-6.0)
[2017-10-11 19:44] LABS: MEAN CORPUSCULAR HEMOGLOBIN 27.1 pg (27.0-33.0); MEAN CORPUSCULAR HGB CONC 31.8 g/dl (32.0-36.5); MEAN CORPUSCULAR VOLUME 85.2 fl (80.0-96.0); PLATELET COUNT, AUTOMATED 239 10^3/uL (150-450); RED CELL DISTRIBUTION WIDTH 13.8 % (11.5-14.5); WHITE BLOOD COUNT 9.8 10^3/uL (4.0-10.0)
== END ==
LOC: M LAB 16:17
PROVIDERS: ATTEND Obstetrics & Gynecology
DX: O13.3 Gestational [pregnancy-induced] hypertension without significant proteinuria, third trimester (principal); Z3A.00 Weeks of gestation of pregnancy not specified

== ENCOUNTER → 2017-10-12 | Outpatient (REF) | payer BC | LOC: M LAB REF 17:47 | PROVIDERS: ATTEND Obstetrics & Gynecology | DX: O13.3 Gestational [pregnancy-induced] hypertension without significant proteinuria, third trimester (principal); Z3A.00 Weeks of gestation of pregnancy not specified ==

== ENCOUNTER 2017-10-14 21:41 | Outpatient (CLI) | payer BC ==
[~2017-10-14] VITALS: Ht 160 cm; Wt 80.2 kg
[2017-10-14 21:50] VITALS: BP 138/105
[2017-10-14 21:56] VITALS: BP 144/86
[2017-10-14 23:00] VITALS: BP 136/85
== END 2017-10-15 01:00 | disposition home or self-care (01) ==
LOC: M LDO 21:41
PROVIDERS: ATTEND Obstetrics & Gynecology
DX: O47.03 False labor before 37 completed weeks of gestation, third trimester (principal); Z3A.36 36 weeks gestation of pregnancy

== ENCOUNTER → 2017-10-23 | Outpatient (CLI) | payer BC ==
--- NOTE | 2017-10-23 14:08 | REP ---
Clinical: Growth evaluation. Comparison: 07/27/2017 . Findings: Examination demonstrates a single live intrauterine in cephalic presentation. motion is identified by technologist. Placenta is noted anteriorly and grade one without evidence for placenta previa or abruption. Amniotic fluid volume is normal. Cervix appears closed. Nuchal cord cannot be excluded Gestational age by first US 37 weeks 2 days with KAYLA 11/11/1979 . Gestational age by current measurements 35 weeks 5 days with KAYLA 11/22/2017 . FHR equals 139 beats per minute. BPD 8.3 cm 33 weeks 3 days HC 32.0 cm 36 weeks 1 day AC 33.0 cm 36 weeks 6 days FL 7.2 cm 36 weeks 5 days HC/AC ratio 0.97 Estimated weight 2926 grams (40th percentile based on age by first ultrasound ). Amniotic fluid index: 9.8 cm (7.4 - 24.2). Umbilical cord SD ratio: 2.47 (1.60 - 2.60). Impression: Single live advanced gestation in cephalic presentation. Estimated weight is within normal limits. Amniotic fluid volume normal range. Nuchal cord cannot be excluded. Signed by Jaime Melendez MD 10/23/2017 01:59 P
== END ==
LOC: M SMT 12:57
PROVIDERS: ATTEND Advanced Practice Midwife
DX: O13.3 Gestational [pregnancy-induced] hypertension without significant proteinuria, third trimester (principal); Z3A.37 37 weeks gestation of pregnancy

== ENCOUNTER 2017-10-24 10:22 | Inpatient (IN) | payer BC ==
[2017-10-24] MEDS ORDERED: miSOPROStol 50 MCG 1/2 TAB (S0191) PV (11:30)
[2017-10-24 11:32] LABS: MEAN CORPUSCULAR HEMOGLOBIN 27.4 pg (27.0-33.0); PLATELET COUNT, AUTOMATED 214 10^3/uL (150-450); RED CELL DISTRIBUTION WIDTH 14.2 % (11.5-14.5)
[2017-10-24] MEDS: miSOPROStol 50 MCG 1/2 TAB (S0191) PO ×3 (11:53→19:54)
[2017-10-24 11:59] LABS: ALT/SGPT 13 U/L (12-78); AST/SGOT 15 U/L (7-37); BILIRUBIN,TOTAL 0.3 MG/DL (0.2-1.0); CREATININE FOR GFR 0.46 MG/DL (0.55-1.02); GLOMERULAR FILTRATION RATE > 60.0 (>60); URIC ACID 4.2 MG/DL (2.6-6.0)
[2017-10-25] MEDS: LR 1,000 ML IV (00:10)
[2017-10-25] MEDS: OXYTOCIN DRIP 30 UNITS in APPROPRIATE DILUENT 1 EA IV ×2 (00:10→09:24)
[2017-10-25] MEDS: BUTORPHANOL 2 MG/ML INJ (J0595) IV (01:53)
[2017-10-25] MEDS: PROMETHAZINE INJ 25 MG/ML VIAL (J2550) IV (01:53)
[2017-10-25 05:57] LABS: MEAN CORPUSCULAR HEMOGLOBIN 27.3 pg (27.0-33.0); MEAN CORPUSCULAR HGB CONC 32.2 g/dl (32.0-36.5); MEAN CORPUSCULAR VOLUME 84.5 fl (80.0-96.0); PLATELET COUNT, AUTOMATED 211 10^3/uL (150-450); RED CELL DISTRIBUTION WIDTH 14.3 % (11.5-14.5); WHITE BLOOD COUNT 10.3 10^3/uL (4.0-10.0)
[2017-10-25] MEDS ORDERED: FENTANYL 2MCG/ML ROPIVACAINE 0.2% IN 0.9% NACL 200ML IVBAG As Ordered (06:01)
[2017-10-25] MEDS ORDERED: FENTANYL/ROPIVACAINE/NACL BAG 200 ML EPIDURAL (06:15)
[2017-10-25] MEDS ORDERED: diphenhydrAMINE INJ 50MG/ML VIAL (J1200) IV (06:15)
[2017-10-25] MEDS ORDERED: EPIDURAL/PCA KEYS XX (06:15)
[2017-10-25] MEDS ORDERED: LACTATED RINGER'S 1000 ML IV (06:15)
[2017-10-25] MEDS ORDERED: NALOXONE INJ 0.4 MG/1 ML VIAL (J2310) IV (06:15)
[2017-10-25] MEDS ORDERED: ONDANSETRON 4MG/2ML VIAL (J2405) IV (06:15)
[2017-10-25] MEDS ORDERED: ePHEDrine SULFATE 25 MG/5 ML(5MG/ML) SYRINGE IV (06:15)
[2017-10-25] MEDS ORDERED: REFRIGERATOR IV KEYS XX (06:15)
[2017-10-25] MEDS ORDERED: EPIDURAL COMMENT XX (06:15)
[2017-10-25] MEDS: PRENATAL VITAMINS CHEWABLE TABLET PO (09:00)
[2017-10-25] MEDS ORDERED: DIBUCAINE 1% OINTMENT 30GM TOP (09:30)
[2017-10-25] MEDS ORDERED: diphenhydrAMINE 50 MG CAP PO (09:30)
[2017-10-25] MEDS ORDERED: DOCUSATE SODIUM 100 MG CAP PO (09:30)
[2017-10-25] MEDS: RHOGAM 300 MCG (1500 IU) INJ (J2790) IM (12:13)
[2017-10-25] MEDS: MEASLES,MUMPS,RUBELLA VACCINE INJ (MMR-II) (90707) SC (12:13)
[2017-10-25] MEDS: IBUPROFEN 800 MG TAB PO (17:04)
[2017-10-25] MEDS: ACETAMINOPHEN 500 MG TAB PO (20:29)
[2017-10-26] MEDS: IBUPROFEN 800 MG TAB PO (05:16)
[2017-10-26] MEDS: PRENATAL VITAMINS CHEWABLE TABLET PO (08:19)
== END 2017-10-26 11:35 | disposition home or self-care (01) | DRG 560 ==
LOC: M LDI 10:22 → M OBS 10-25 11:02
PROC: 3E0DXGC Introduction of Other Therapeutic Substance into Mouth and Pharynx, External Approach (ICD-10-PCS; 2017-10-24)
PROC: 10E0XZZ Delivery of Products of Conception, External Approach (ICD-10-PCS; principal; 2017-10-25)
PROC: 10907ZC Drainage of Amniotic Fluid, Therapeutic from Products of Conception, Via Natural or Artificial Opening (ICD-10-PCS; 2017-10-25)
DX: O13.4 Gestational [pregnancy-induced] hypertension without significant proteinuria, complicating childbirth (principal); O69.2XX0 Labor and delivery complicated by other cord entanglement, with compression, not applicable or unspecified; Z37.0 Single live birth; Z3A.37 37 weeks gestation of pregnancy

== ENCOUNTER → 2017-11-06 | Outpatient (CLI) | payer BC ==
[~2017-11-06] MED LIST changes: -ACET50TA PO; -AMBI5TAB OR; -AMOX875T; -ATIV1TAB10 PO; -BUSP1TAB PO; -COLA100C2 OR; -FIOR1CAP PO; -FLOM5CAP PO; +GASTROGRAFIN SOLUTION 30ML (Q9963) As Ordered; -IBUP600T OR; -IBUP80TA PO; +ISOVUE-370 76% 100ML VIAL (Q9967) As Ordered; -MILKSUS OR; -NAPR500T3 PO; -PERC5TAB PO; -PERC5TAB12 PO; -PRENTAB40 PO; -PRENTAB8 PO; -TYLE500T53 OR; -[UNRECOGNIZED DRUG - CODE] PO
== END ==
LOC: M RAD 11:04
DX: K85.00 Idiopathic acute pancreatitis without necrosis or infection (principal)
CPT/HCPCS: Q9963

== ENCOUNTER → 2017-11-22 | Outpatient (REF) | payer BC | LOC: M LAB REF 17:43 | DX: N61.0 Mastitis without abscess (principal) | CPT/HCPCS: 87186 ==

== ENCOUNTER → 2018-04-22 | Outpatient (REF) | payer BC ==
[2018-04-22 19:27] LABS: AMYLASE 42 U/L (25-115)
[2018-04-22 19:27] LABS: LIPASE 119 U/L (73-393)
== END ==
LOC: M LAB REF 17:08
DX: R10.11 Right upper quadrant pain (principal)
CPT/HCPCS: 82150

== ENCOUNTER 2018-05-28 04:14 | Inpatient (IN) | payer BC ==
[2018-05-28 04:42] LABS: BASO # 0.1 10^3/uL (0.0-0.2); BASO % 0.6 % (0.0-1.0); EOS # 0.6 10^3/uL (0.0-0.50); HEMATOCRIT 37.7 % (36.0-47.0); HEMOGLOBIN 12.7 g/dl (12.0-15.5); IMMATURE GRANULOCYTE % 0.3 % (0-3.0); LYMPH # 3.4 10^3/uL (1.5-6.5); LYMPH % 20.9 % (24.0-44.0); MEAN CORPUSCULAR HEMOGLOBIN 28.9 pg (27.0-33.0); MEAN CORPUSCULAR HGB CONC 33.7 g/dl (32.0-36.5); MEAN CORPUSCULAR VOLUME 85.7 fl (80.0-96.0); MONO % 6.2 % (0.0-5.0); PLATELET COUNT, AUTOMATED 293 10^3/uL (150-450); WHITE BLOOD COUNT 16.2 10^3/uL (4.0-10.0)
[2018-05-28 04:55] LABS: CONTROL LINE HCG INT CTR LINE PRESENT; HCG, SERUM QUALITATIVE NEGATIVE (NEGATIVE)
[2018-05-28] MEDS: ONDANSETRON 4MG/2ML VIAL (J2405) IV ×2 (05:00→11:29)
[2018-05-28 05:03] LABS: ALBUMIN 3.6 GM/DL (3.2-5.2); ALKALINE PHOSPHATASE 48 U/L (45-117); ALT/SGPT 17 U/L (12-78); ANION GAP 10 MEQ/L (8-16); AST/SGOT 12 U/L (7-37); BILIRUBIN,DIRECT < 0.1 MG/DL (0.0-0.2); BILIRUBIN,TOTAL 0.3 MG/DL (0.2-1.0); BLOOD UREA NITROGEN 15 MG/DL (7-18); CALCIUM LEVEL 8.2 MG/DL (8.5-10.1); CARBON DIOXIDE LEVEL 24 MEQ/L (21-32); CHLORIDE LEVEL 108 MEQ/L (98-107); CREATININE FOR GFR 0.71 MG/DL (0.55-1.30); GLOMERULAR FILTRATION RATE > 60.0 (>60); GLUCOSE, FASTING 151 MG/DL (70-100); LIPASE 104 U/L (73-393); POTASSIUM SERUM 3.2 MEQ/L (3.5-5.1); SODIUM LEVEL 142 MEQ/L (136-145); TOTAL PROTEIN 6.6 GM/DL (6.4-8.2)
[2018-05-28] MEDS ORDERED: ISOVUE-370 76% 100ML VIAL (Q9967) As Ordered ×2 (05:07→14:29)
[2018-05-28] MEDS: MORPHINE 4 MG/ML 1ML VIAL/SYRINGE (J2270) IV ×2 (05:14→14:35)
[2018-05-28 06:21] LABS: KETONE, URINE AUTO RFX NEGATIVE (NEGATIVE); LEUKOCYTE ESTERASE UR AUTO RFX NEGATIVE (NEGATIVE); NITRITE, URINE AUTO RFX NEGATIVE (NEGATIVE); RBC, URINE AUTO RFX 0 /HPF (0-3); SPECIFIC GRAVITY UR AUTO RFX 1.041 (1.002-1.035); SQUAM EPITHELIAL CELL UR AURFX 0 /HPF (0-6); WBC, URINE AUTO RFX 1 /HPF (0-3)
[2018-05-28 06:27] LABS: LACTIC ACID SEPSIS PROTOCOL 1.3 MMOL/L (0.4-2.0)
[2018-05-28] MEDS: HYDROMORPHONE HCL 0.5 MG/ 0.5 ML SYRINGE (J1170 PER 1) IV ×2 (07:42→17:55)
[2018-05-28] MEDS: PIPERACILLIN/TAZOBACTAM SOD 3.375 GM in D5W MINI-BAG PLUS 50 ML IV (07:48)
[2018-05-28] MEDS ORDERED: NORCO, ANEXSIA 5/325MG TABLET (HYDROcodone/ACETAMINOPHEN) PO (10:00)
[2018-05-28] MEDS ORDERED: ACETAMINOPHEN TAB 650MG DOSE (2X325MG) PO (10:00)
[2018-05-28] MEDS: CIPROFLOXACIN 400 MG in APPROPRIATE DILUENT 1 EA IV ×2 (11:29→23:31)
[2018-05-28] MEDS: LR 1,000 ML IV ×4 (11:29→23:18)
[2018-05-28] MEDS: KETOROLAC 30 MG/ML VIAL (J1885) IV (11:30)
[2018-05-28] MEDS: NORCO, ANEXSIA 5/325MG TABLET (HYDROcodone/ACETAMINOPHEN) PO (11:30)
[2018-05-28] MEDS: ENOXAPARIN 40 MG/0.4 ML SYRINGE (J1650) SC (11:31)
[2018-05-28] MEDS: GASTROGRAFIN SOLUTION 30ML PO ×2 (12:03→12:45)
[2018-05-28] MEDS: metroNIDAZOLE 500 MG in APPROPRIATE DILUENT 1 EA IV ×2 (12:45→20:00)
[2018-05-28] MEDS ORDERED: HYDROMORPHONE HCL 0.5 MG/ 0.5 ML SYRINGE (J1170 PER 1) As Ordered (17:49)
[2018-05-28] MEDS ORDERED: SCOPOLAMINE 1MG TRANSDERMAL PATCH As Ordered (17:51)
[2018-05-28] MEDS: SCOPOLAMINE 1MG TRANSDERMAL PATCH TOP (17:55)
[2018-05-28] MEDS ORDERED: MIDAZOLAM INJ 2 MG/2 ML VIAL (J2250) As Ordered (19:12)
[2018-05-28] MEDS ORDERED: LIDOCAINE 2% INJ 100 MG/5 ML SDV (FOR ANES.) As Ordered (19:12)
[2018-05-28] MEDS ORDERED: dexameTHASONE 4 MG/ML 1ML VIAL (J1100) As Ordered (19:12)
[2018-05-28] MEDS ORDERED: fentaNYL 250 MCG/5 ML INJECTION (J3010) As Ordered (19:12)
[2018-05-28] MEDS ORDERED: ROCURONIUM BROMIDE 50 MG/5 ML VIAL As Ordered (19:12)
[2018-05-28] MEDS ORDERED: ONDANSETRON 4MG/2ML VIAL (J2405) As Ordered ×2 (19:12→20:18)
[2018-05-28] MEDS ORDERED: PROPOFOL 200 MG/20 ML VIAL As Ordered (19:12)
[2018-05-28] MEDS ORDERED: KETOROLAC 60 MG/2 ML VIAL (J1885) As Ordered ×3 (19:12→20:18)
[2018-05-28] MEDS ORDERED: PHENYLephrine HCL 500 MCG/5 ML (100MCG/ML) SYRINGE (J2370) As Ordered (19:59)
[2018-05-28] MEDS ORDERED: ePHEDrine SULFATE 25 MG/5 ML(5MG/ML) SYRINGE As Ordered (19:59)
[2018-05-28] MEDS: BUPIVACAINE HCL 0.25% 10 ML VIAL As Ordered (20:05)
[2018-05-28] MEDS: LIDOCAINE 1% MDV 20ML VIAL As Ordered (20:05)
[2018-05-28] MEDS ORDERED: GLYCOPYRROLATE INJ 0.2 MG/ML 2 ML VIAL As Ordered (20:18)
[2018-05-28] MEDS ORDERED: NEOSTIGMINE 10 MG/10 ML VIAL (J2710) As Ordered (20:18)
[2018-05-28] MEDS ORDERED: fentaNYL 100 MCG/2 ML INJECTION (J3010) IV (20:45)
[2018-05-28] MEDS ORDERED: diphenhydrAMINE INJ 50MG/ML VIAL (J1200) IV ×2 (20:45→21:07)
[2018-05-28] MEDS ORDERED: ONDANSETRON 4MG/2ML VIAL (J2405) IV (20:45)
[2018-05-28] MEDS ORDERED: HYDROMORPHONE HCL 0.5 MG/ 0.5 ML SYRINGE (J1170 PER 1) IV (20:45)
[2018-05-28] MEDS ORDERED: PERCOCET 5MG/325MG TAB As Ordered (21:05)
[2018-05-28] MEDS: PERCOCET 5MG/325MG TAB PO (21:09)
[2018-05-29] MEDS: NORCO, ANEXSIA 5/325MG TABLET (HYDROcodone/ACETAMINOPHEN) PO ×3 (00:59→15:00)
[2018-05-29] MEDS: metroNIDAZOLE 500 MG in APPROPRIATE DILUENT 1 EA IV ×2 (04:52→12:00)
[2018-05-29] MEDS: KETOROLAC 30 MG/ML VIAL (J1885) IV ×2 (04:53→14:28)
[2018-05-29 07:38] LABS: BASO % 0.1 % (0.0-1.0); HEMATOCRIT 33.5 % (36.0-47.0); HEMOGLOBIN 11.4 g/dl (12.0-15.5); IMMATURE GRANULOCYTE % 0.4 % (0-3.0); LYMPH # 0.8 10^3/uL (1.5-6.5); LYMPH % 9.4 % (24.0-44.0); MEAN CORPUSCULAR VOLUME 85.2 fl (80.0-96.0); MONO # 0.2 10^3/uL (0.0-0.8); MONO % 2.7 % (0.0-5.0); NEUTROPHILS % 87.4 % (36.0-66.0); PLATELET COUNT, AUTOMATED 226 10^3/uL (150-450); RED BLOOD COUNT 3.93 10^6/uL (4.00-5.40); RED CELL DISTRIBUTION WIDTH 12.4 % (11.5-14.5); WHITE BLOOD COUNT 8.1 10^3/uL (4.0-10.0)
[2018-05-29 08:19] LABS: ANION GAP 9 MEQ/L (8-16); BLOOD UREA NITROGEN 6 MG/DL (7-18); C REACTIVE PROTEIN QUANTITATIV 7.01 MG/DL (0.00-0.30); CALCIUM LEVEL 7.9 MG/DL (8.5-10.1); CARBON DIOXIDE LEVEL 25 MEQ/L (21-32); CHLORIDE LEVEL 106 MEQ/L (98-107); CREATININE FOR GFR 0.42 MG/DL (0.55-1.30); GLOMERULAR FILTRATION RATE > 60.0 (>60); GLUCOSE, FASTING 105 MG/DL (70-100); POTASSIUM SERUM 3.8 MEQ/L (3.5-5.1); SODIUM LEVEL 140 MEQ/L (136-145)
[2018-05-29] MEDS: ENOXAPARIN 40 MG/0.4 ML SYRINGE (J1650) SC (08:32)
[2018-05-29] MEDS: CIPROFLOXACIN 400 MG in APPROPRIATE DILUENT 1 EA IV (11:09)
== END 2018-05-29 15:20 | disposition home or self-care (01) | DRG 225 ==
LOC: M ED 04:14 → M ED INP 09:57 → M PED 11:07
PROC: 0DTJ4ZZ Resection of Appendix, Percutaneous Endoscopic Approach (ICD-10-PCS; principal; 2018-05-28 12:41)
DX: K37 Unspecified appendicitis (principal); Z79.899 Other long term (current) drug therapy

== ENCOUNTER 2018-06-02 00:30 | Observation (INO) | payer BC ==
[2018-06-02] MEDS: ALVIMOPAN 12 MG CAPSULE (ENTEREG) PO ×2 (00:48→08:44)
[2018-06-02] MEDS: KETOROLAC 30 MG/ML VIAL (J1885) IV ×3 (01:17→20:15)
[2018-06-02] MEDS: KCL 40MEQ IN D5/0.45NS 1000ML 1,000 ML IV ×2 (01:17→10:45)
[2018-06-02] MEDS: MOM 30ML SUSPENSION UDC PO (05:28)
[2018-06-02] MEDS: MORPHINE 4 MG/ML 1ML VIAL/SYRINGE (J2270) IV (06:03)
[2018-06-02] MEDS: ONDANSETRON 4MG/2ML VIAL (J2405) IV ×2 (06:03→17:00)
[2018-06-02 07:08] LABS: BASO # 0.1 10^3/uL (0.0-0.2); BASO % 0.9 % (0.0-1.0); EOS # 0.2 10^3/uL (0.0-0.50); EOS % 1.8 % (0.0-3.0); HEMATOCRIT 36.5 % (36.0-47.0); HEMOGLOBIN 12.4 g/dl (12.0-15.5); IMMATURE GRANULOCYTE % 0.4 % (0-3.0); LYMPH # 1.5 10^3/uL (1.5-6.5); LYMPH % 17.6 % (24.0-44.0); MEAN CORPUSCULAR HEMOGLOBIN 29.2 pg (27.0-33.0); MEAN CORPUSCULAR VOLUME 85.9 fl (80.0-96.0); MONO # 0.6 10^3/uL (0.0-0.8); MONO % 6.4 % (0.0-5.0); NEUTROPHILS # 6.2 10^3/uL (1.8-7.7); NEUTROPHILS % 72.9 % (36.0-66.0); PLATELET COUNT, AUTOMATED 289 10^3/uL (150-450); RED BLOOD COUNT 4.25 10^6/uL (4.00-5.40); RED CELL DISTRIBUTION WIDTH 12.2 % (11.5-14.5); WHITE BLOOD COUNT 8.5 10^3/uL (4.0-10.0)
[2018-06-02 07:25] LABS: ANION GAP 8 MEQ/L (8-16); BLOOD UREA NITROGEN 9 MG/DL (7-18); CALCIUM LEVEL 8.2 MG/DL (8.5-10.1); CARBON DIOXIDE LEVEL 26 MEQ/L (21-32); CHLORIDE LEVEL 106 MEQ/L (98-107); CREATININE FOR GFR 0.47 MG/DL (0.55-1.30); GLOMERULAR FILTRATION RATE > 60.0 (>60); GLUCOSE, FASTING 112 MG/DL (70-100); SODIUM LEVEL 140 MEQ/L (136-145)
[2018-06-02] MEDS: PANTOPRAZOLE 40MG INJ (PROTONIX) (C9113) IV (08:44)
[2018-06-02] MEDS: ACETAMINOPHEN TAB 650MG DOSE (2X325MG) PO (17:00)
== END 2018-06-02 20:25 | disposition home or self-care (01) ==
LOC: M PED 00:30
DX: R14.0 Abdominal distension (gaseous) (principal); R11.0 Nausea; K56.7 Ileus, unspecified; E86.0 Dehydration; R74.0 Nonspecific elevation of levels of transaminase and lactic acid dehydrogenase [LDH]; Z79.899 Other long term (current) drug therapy
CPT/HCPCS: C9113